=== PATIENT | male | born 1960 | race Caucasian/White ===

== ENCOUNTER 2022-09-10 15:03 | Inpatient (IN) | payer SELFPAY ==
[~2022-09-10] VITALS: Ht 182.8 cm; Wt 78.0 kg
[2022-09-10] MEDS ORDERED: NS IV 1000 ML 1,000 ML ONE (15:26)
--- NOTE | 2022-09-10 15:32 | ED General ---
General Stated Complaint: UNRESPONSIVE Source of Information: EMS Exam Limitations: Physical Impairments History of Present Illness Date Seen by Provider: Sep 10, 2022 Time Seen by Provider: 15:10 Initial Comments Patient is a 62-year-old male who presents to the emergency room by ambulance after witnessed cardiac arrest at home with his girlfriend. He was laying in bed, girlfriend states that she saw his eyes "rolled back". She went to check on him and did not believe that he had a pulse. She started CPR and called 911. They instructed her to move him to the floor where she continued CPR EMS arrived, CPR continued, LMA was placed. Intraosseous line to the left tib-fib fluids started. Glucose reported prior to arrival greater than 200. No medications were given and ROSC was achieved shortly after EMS arrival with CPR. Patient is noted to be breathing with bagging. Nonresponsive to painful stimuli. Pinpoint pupils bilaterally. No obvious outward signs of trauma. Girlfriend arrived later and states that they had both been ill for about a week with congestion, cough. He had taken an antibiotic pill yesterday and 1 today for symptoms. He is a chronic alcoholic. Drinks vodka daily. She states he is only been drinking to prevent the "shakes". He does not take any daily medications. No allergies to medications. She states he has been advised to ta ke metoprolol in the past for blood pressure. He is a smoker. Timing/Duration: 1 Hour Severity: Severe Allergies and Home Medications Allergies Coded Allergies: No Known Drug Allergies (Unverified , 09/10/22) Patient Home Medication List Home Medication List Reviewed: Yes Review of Systems Review of Systems Constitutional: see HPI unable to obtain due to patien'ts clinical condition Physical Exam Vital Signs Vital Signs - First Documented 09/10/22 09/10/22 15:04 15:41 Temp 36.2 Pulse 146 Resp 25 B/P (MAP) 156/102 (120) Pulse Ox 98 O2 Delivery Ambu Bag FiO2 98 Capillary Refill : Height, Weight, BMI Height: '" Weight: lbs. oz. kg; BMI Method: General Appearance: Thin, Other (Unkempt, dirty disheveled) Eyes: Bilateral Eye Other (pinpoint pupils bilaterally) HEENT: Other (dry mucous membranes; LMA in place; poor dentition) Neck: Normal Inspection Respiratory: Rhonci (throughout; ventilations assisted with BVM copious secretions noted equal rise and fall the chest) Cardiovascular: Irregularly Irregular, Tachycardia Gastrointestinal: Soft; No Distended Extremity: Normal Inspection, No Pedal Edema, Other (not obvious outward signs of trauma) Neurologic/Psychiatric: Other (Unresponsive to deep painful stimuli) Skin: Normal Color, Warm/Dry Focused Exam Lactate Level Lactic Acid Level Laboratory Tests Test 09/10/22 15:15 Lactic Acid Level 9.80 MMOL/L (0.50-2.00) *H Procedures/Interventions Chest Tube : Chest Tube Position: Right Chest Tube Location: Mid-Axillary Chest Size of Bulgarian Tube (cm): 20 Chest Tube Procedure: betadine prep, sterile drapes applied, sterile dressing applied Anesthesia: 1% Lidocaine Volume Anesthetic (ccs): 6 Brown of Air Cataño: Yes Number of Attempts: 1 Time of Successful Intubation: 17:10 Tube Drainage: see nurses notes Tube Sutured to Skin: Yes Post Procedure CXR?: Yes Date of ETT Placement: Sep 10, 2022 Time of ETT Placement: 15:30 Intubation Method: orotracheal Tube Size: 7.5 Medications: Etomidate, Rocuronium Positive End Tide CO2: Yes Breath Sounds after Intubation: bilateral-equal Intubation Complications: no complications Post Intubation Xray: Yes Chest x-ray large right-sided pneumothorax. ET tube in place Progress/Results/Core Measures Suspected Sepsis SIRS Temperature: Pulse: Respiratory Rate: Laboratory Tests 09/10/22 15:15: White Blood Count 16.2H Blood Pressure / Mean: Laboratory Tests 09/10/22 15:15: Creatinine 0.77, Platelet Count 215, Total Bilirubin 0.4 09/10/22 16:15: INR Comment 1.3 Results/Orders Lab Results Laboratory Tests Test 09/10/22 15:15 09/10/22 15:30 09/10/22 16:15 09/10/22 17:10 Range/Units White Blood Count 16.2 H 4.3-11.0 10^3/uL Red Blood Count 3.93 L 4.30-5.52 10^6/uL Hemoglobin 13.4 13.3-17.7 g/dL Hematocrit 43 40-54 % Mean Corpuscular Volume 110 H 80-99 fL Mean Corpuscular Hemoglobin 34 25-34 pg Mean Corpuscular Hemoglobin Concent 31 L 32-36 g/dL Red Cell Distribution Width 20.1 H 10.0-14.5 % Platelet Count 215 130-400 10^3/uL Mean Platelet Volume 10.3 9.0-12.2 fL Immature Granulocyte % (Auto) 2 % Neutrophils (%) (Auto) 34 L 42-75 % Lymphocytes (%) (Auto) 60 H 12-44 % Monocytes (%) (Auto) 4 0-12 % Eosinophils (%) (Auto) 0 0-10 % Basophils (%) (Auto) 0 0-10 % Neutrophils # (Auto) 5.5 1.8-7.8 10^3/uL Lymphocytes # (Auto) 9.7 H 1.0-4.0 10^3/uL Monocytes # (Auto) 0.7 0.0-1.0 10^3/uL Eosinophils # (Auto) 0.0 0.0-0.3 10^3/uL Basophils # (Auto) 0.1 0.0-0.1 10^3/uL Immature Granulocyte # (Auto) 0.3 H 0.0-0.1 10^3/uL Neutrophils % (Manual) 34 % Lymphocytes % (Manual) 60 % Monocytes % (Manual) 6 % Nucleated Red Blood Cells 1 Poikilocytosis SLIGHT Macrocytosis SLIGHT Sodium Level 141 135-145 MMOL/L Potassium Level 4.8 3.6-5.0 MMOL/L Chloride Level 101 98-107 MMOL/L Carbon Dioxide Level 17 L 21-32 MMOL/L Anion Gap 23 H 5-14 MMOL/L Blood Urea Nitrogen 15 7-18 MG/DL Creatinine 0.77 0.60-1.30 MG/DL Estimat Glomerular Filtration Rate 102 BUN/Creatinine Ratio 19 Glucose Level 197 H 70-105 MG/DL Lactic Acid Level 9.80 *H 0.50-2.00 MMOL/L Calcium Level 10.5 H 8.5-10.1 MG/DL Corrected Calcium 10.8 H 8.5-10.1 MG/DL Magnesium Level 2.4 1.6-2.4 MG/DL Total Bilirubin 0.4 0.1-1.0 MG/DL Aspartate Amino Transf (AST/SGOT) 117 H 5-34 U/L Alanine Aminotransferase (ALT/SGPT) 41 0-55 U/L Alkaline Phosphatase 101 40-136 U/L Myoglobin 202.5 H 10.0-92.0 NG/ML Troponin I < 0.028 <0.028 NG/ML B-Type Natriuretic Peptide 423.5 H <100.0 PG/ML Total Protein 6.8 6.4-8.2 GM/DL Albumin 3.6 3.2-4.5 GM/DL Triglycerides Level 118 <150 MG/DL Salicylates Level < 5.0 L 5.0-20.0 MG/DL Acetaminophen Level < 10 L 10-30 UG/ML Blood Gas Puncture Site RIGHT RADIAL Blood Gas Patient Temperature 36.2 Arterial Blood pH 6.98 *L 7.37-7.43 Arterial Blood Partial Pressure CO2 83 *H 35-45 MMHG Arterial Blood Partial Pressure O2 252 H 79-93 MMHG Arterial Blood HCO3 19 L 23-27 MMOL/L Arterial Blood Total CO2 21.6 21.0-31.0 MMOL/L Arterial Blood Oxygen Saturation 99 94-100 % Arterial Blood Base Excess -11.3 L -2.5-2.5 MMOL/L Alvarez Test NA Blood Gas Ventilator Setting YES Blood Gas Inspired Oxygen 100 Prothrombin Time 16.2 H 12.2-14.7 SEC INR Comment 1.3 0.8-1.4 Activated Partial Thromboplast Time 33 24-35 SEC Urine Opiates Screen POSITIVE H NEGATIVE Urine Oxycodone Screen NEGATIVE NEGATIVE Urine Methadone Screen NEGATIVE NEGATIVE Urine Propoxyphene Screen NEGATIVE NEGATIVE Urine Barbiturates Screen POSITIVE H NEGATIVE Ur Tricyclic Antidepressants Screen NEGATIVE NEGATIVE Urine Phencyclidine Screen NEGATIVE NEGATIVE Urine Amphetamines Screen NEGATIVE NEGATIVE Urine Methamphetamines Screen NEGATIVE NEGATIVE Urine Benzodiazepines Screen NEGATIVE NEGATIVE Urine Cocaine Screen NEGATIVE NEGATIVE Urine Cannabinoids Screen NEGATIVE NEGATIVE Micro Results Microbiology 09/10/22 Blood Culture - Preliminary, Resulted No growth 09/10/22 Blood Culture - Preliminary, Resulted Staph, Coag Neg ([employer] PSYCHIATRIST) My Orders Orders - ANDREINA FLOOD MD Cbc With Automated Diff (09/10/22 15:25) Magnesium (09/10/22 15:25) Chest 1 View, Ap/Pa Only (09/10/22 15:25) Ekg Tracing (09/10/22 15:25) Comprehensive Metabolic Panel (09/10/22 15:25) Myoglobin Serum (09/10/22 15:25) Protime With Inr (09/10/22 15:25) Partial Thromboplastin Time (09/10/22 15:25) O2 (09/10/22 15:25) Monitor-Rhythm Ecg Trace Only (09/10/22 15:25) Ed Iv/Invasive Line Start (09/10/22 15:25) Troponin I Argenis (09/10/22 15:25) Bnp [place] (09/10/22 15:25) Blood Culture (09/10/22 15:25) Salicylate (09/10/22 15:25) Acetaminophen (09/10/22 15:25) Drug Screen Stat (Urine) (09/10/22 15:25) Lactic Acid Analyzer (09/10/22 15:25) Arterial Blood Gas (09/10/22 15:25) Catheter(Urinary) Insert & Ass ,15 (09/10/22 15:25) Ns Iv 1000 Ml (Sodium Chloride 0.9%) (09/10/22 15:26) Blood Culture (09/10/22 15:31) Ns Iv 1000 Ml (Sodium Chloride 0.9%) (09/10/22 15:33) Diltiazem Injection (Cardizem Injection) (09/10/22 16:00) Diltiazem Drip Pre-Mix (Cardizem Drip Pr (09/10/22 16:00) Piperacillin Sodium/Tazobactam (Zosyn Vi (09/10/22 16:15) Vancomycin Injection (Vancomycin Injecti (09/10/22 16:15) Ct Chest W (09/10/22 16:09) Manual Differential (09/10/22 15:15) Lidocaine 1% Inj 20 Ml (Xylocaine 1% Inj (09/10/22 16:42) Chest 1 View, Ap/Pa Only (09/10/22 17:07) Ct Angio Head/Neck (09/10/22 17:35) Isolation Central Supply Req (09/10/22 17:36) Ed Admission (Communication) (09/10/22 17:50) Ns Iv 1000 Ml (Sodium Chloride 0.9%) (09/10/22 18:00) Medications Given in ED Vital Signs/I&O 09/10/22 09/10/22 09/10/22 09/10/22 15:04 15:15 15:41 15:52 Temp 36.2 Pulse 146 160 Resp 25 18 B/P (MAP) 156/102 (120) Pulse Ox 98 95 O2 Delivery Ambu Bag Ambu Bag Ambu Bag FiO2 98 100 09/10/22 09/10/22 15:56 15:56 Pulse 160 158 B/P (MAP) 99/82 99/82 Capillary Refill : Progress Note : Time: 17:43 Progress Note Patient seen and evaluated, postcode. Evaluation today includes physical exam, CBC, chemistry, coags, mag, BNP, troponin, toxicology aspirin, Tylenol levels, alcohol level, urine drug screen. Urinalysis. Chest x-ray. EKG. Blood cultures. Lactic acid. ABG. CT head and neck angio, postprocedural chest x- ray, CT chest with IV contrast. Pertinent physical exam findings, well- developed male unresponsive to even deep painful stimuli. Dry mucous membranes. Pinpoint pupils. Making respiratory effort. Rapid irregular heart rate, rhonchus breath sounds bilaterally with copious secretions from the oropharynx. Abdomen is soft. No traumatic injuries noted to the extremities. Neuro, GCS = 3 Differential diagnosis, acute stroke, malignant arrhythmia, acute coronary syndrome, sepsis/septic shock; drug overdose Labs independently reviewed by me as well as independent review of the chest x- ray. CBC shows leukocytosis at 16,000 with normal hemoglobin and platelets. Chemistry shows normal renal function normal electrolytes normal liver function. His lactic acid is 9. Aspirin and Tylenol levels are undetectable. BNP is elevated. Mag is 2.5. ABG shows significant acidosis with a pH of 6.9. PCO2 greater than 80. EKG shows atrial fibrillation with rapid ventricular response. Chest x-ray demonstrated right-sided pneumothorax with patchy appearing infiltrates in the left lung. ET tube and NG tube in place. Urinalysis, urine drug screen pending at the time of this dictation. Patient received 2 L of normal saline initially. Blood sugar rechecked and greater than 200. He was also given during resuscitation 4 mg of Narcan. No response to the Narcan, the patient may have made better respiratory effort however after the Narcan. Once dedicated ET tube was in place and fluids were bolused and the blood pressure came up to greater than 90 the patient was started on Cardizem after a 10 mg bolus. He had improvement in his rate down to 1 10-1 15 and his blood pressure came up into the 120s, 130s systolic. Chest tube was placed in the right chest mid axillary line, 20 Bulgarian. review of CXR shows the tube could be advanced 3-4 cm. Patient currently in CT. Dr Rodgers in department to see the patient at this time. COnsults to him and Dina e-ICU done. ECG Initial ECG Impression Date: Sep 10, 2022 Initial ECG Impression Time: 15:18 Initial ECG Rate: 145 Initial ECG Rhythm: A Fib/Flutter Initial ECG Impression: Atrial Fibrillation w/RVR Comment Intermittent Q waves noted, QRS widened at 146; right bundle branch block Critical Care Note Critical Care Start Time: 15:10 Stop Time: 17:30 Total Time (minutes) 40 minutes critical care time in the evaluation and management of this postcode patient. Time includes initial evaluation, management of the airway/oxygenation, fluid resuscitation, review and interpretation of labs and imaging. Discussion with family member, his girlfriend for additional history as the patient could not provide. Medication administration, Cardizem for control of A-fib and management of Cardizem drip. Antibiotic administration. Discussion with multiple consultants and the admitting provider. Time does not include that spent in procedures of intubation and chest tube placement Departure Communication (Admissions) Time/Spoke to Admitting Phy: 16:[address] Coon, hospitalist. Accepts patient to the ICU Time/Spoke to Consulting Phy: 16:[address] Truong, general surgery recommends dedicated chest tube right chest for pneumothorax Impression Primary Impression: Cardiac arrest Additional Impressions: Atrial fibrillation with rapid ventricular response Pneumothorax Qualified Codes: S27.0XXA - Traumatic pneumothorax, initial encounter Disposition: ADMITTED INPATIENT Condition: Critical Admissions Decision to Admit Reason: Admit from ER (General) Decision to Admit/Date: Sep 10, 2022 Time/Decision to Admit Time: 17:38 Departure-Patient Inst. Referrals: NO,LOCAL PHYSICIAN (PCP/Family) Primary Care Physician ANDREINA FLOOD MD Sep 10, 2022 15:32
[2022-09-10] MEDS ORDERED: NS IV 1000 ML 1,000 ML IV STA (15:33)
[2022-09-10 15:36] LABS: ABG BASE EXCESS -11.3 MMOL/L (-2.5-2.5); ABG OXYGEN SATURATION 99 % (94-100); ABG PO2 252 MMHG (79-93); ABG TCO2 21.6 MMOL/L (21.0-31.0)
[2022-09-10 15:39] LABS: ABG PCO2 83 MMHG (35-45); ABG PH 6.98 (7.37-7.43); INSPIRED O2 100; VENTILATOR YES
[2022-09-10 15:40] LABS: ALBUMIN 3.6 GM/DL (3.2-4.5); POTASSIUM 4.8 MMOL/L (3.6-5.0)
[2022-09-10 15:40] LABS: PATIENT TEMP 36.2
[2022-09-10 15:41] LABS: CALCIUM 10.5 MG/DL (8.5-10.1)
[2022-09-10 15:42] LABS: TOTAL PROTEIN 6.8 GM/DL (6.4-8.2)
[2022-09-10 15:44] LABS: BILIRUBIN,TOTAL 0.4 MG/DL (0.1-1.0)
[2022-09-10 15:46] LABS: CREATININE SERUM 0.77 MG/DL (0.60-1.30)
[2022-09-10 15:49] LABS: MAGNESIUM 2.4 MG/DL (1.6-2.4)
[2022-09-10 15:50] LABS: ACETAMINOPHEN < 10 UG/ML (10-30); SALICYLATE < 5.0 MG/DL (5.0-20.0)
[2022-09-10 15:52] VITALS: BP 99/82
[2022-09-10] MEDS: dilTIAZem DRIP PRE-MIX 125 ML IV SCH (15:56)
--- NOTE | 2022-09-10 16:05 | Diagnostic Imaging Report ---
EXAMINATION: Chest 1 view. HISTORY: Post code. COMPARISON: None available. FINDINGS: There is a large right pneumothorax. There are patchy airspace opacities in both lungs. Endotracheal tube tip terminates 8 cm above the quita. Gastric tube tip terminates below the field of view. No left-sided pneumothorax. There is a nodular opacity in the right upper zone and left upper zone. IMPRESSION: 1. Large right pneumothorax. 2. Patchy airspace opacities and nodular opacities may represent acute infection. When feasible a chest CT is recommended. Critical findings called to Dr. Cooper by Dr. Pereira on 09/10/2022 at 4:00 PM. Dictated by: Dictated on workstation # [id number]
[2022-09-10] MEDS ORDERED: PIPERACILLIN SODIUM/TAZOBACTAM 4.5 GM in NS (IVPB) 100 ML IV ONE (16:15)
[2022-09-10] MEDS ORDERED: VANCOMYCIN INJECTION 1,000 MG in NS (IVPB) 250 ML IV ONE (16:15)
[2022-09-10 16:19] LABS: BASOPHILS # (AUTO) 0.1 10^3/uL (0.0-0.1); BASOPHILS % (AUTO) 0 % (0-10); EOSINOPHILS % (AUTO) 0 % (0-10); HEMATOCRIT 43 % (40-54); HEMOGLOBIN 13.4 g/dL (13.3-17.7); LYMPHOCYTES # (AUTO) 9.7 10^3/uL (1.0-4.0); LYMPHOCYTES % (AUTO) 60 % (12-44); MEAN CORPUSCULAR HEMOGLOBIN 34 pg (25-34); MEAN CORPUSCULAR HGB CONC 31 g/dL (32-36); MEAN CORPUSCULAR VOLUME 110 fL (80-99); MEAN PLATELET VOLUME 10.3 fL (9.0-12.2); MONOCYTES # (AUTO) 0.7 10^3/uL (0.0-1.0); MONOCYTES % (AUTO) 4 % (0-12); NEUTROPHILS # (AUTO) 5.5 10^3/uL (1.8-7.8); NEUTROPHILS % (AUTO) 34 % (42-75); PLATELET COUNT 215 10^3/uL (130-400); WHITE BLOOD COUNT 16.2 10^3/uL (4.3-11.0)
[2022-09-10] MEDS ORDERED: LIDOCAINE 1% INJ 20 ML VIAL ONE (16:42)
[2022-09-10 16:47] LABS: LYMPHOCYTES % (MANUAL) 60 %; MONOCYTES % (MANUAL) 6 %; NEUTROPHILS % (MANUAL) 34 %; NUCLEATED RED BLOOD CELLS 1; POIKILOCYTOSIS SLIGHT
[2022-09-10 16:47] LABS: INR 1.3 (0.8-1.4); PROTHROMBIN TIME PATIENT 16.2 SEC (12.2-14.7)
[2022-09-10 17:33] LABS: AMPHETAMINE SCREEN, URINE NEGATIVE (NEGATIVE); BARBITURATE SCREEN URINE POSITIVE (NEGATIVE); BENZODIAZEPINES SCREEN URINE NEGATIVE (NEGATIVE); CANNABINOID SCREEN, URINE NEGATIVE (NEGATIVE); COCAINE SCREEN URINE NEGATIVE (NEGATIVE); METHADONE STAT NEGATIVE (NEGATIVE); OPIATE SCREEN URINE POSITIVE (NEGATIVE); OXYCODONE STAT NEGATIVE (NEGATIVE); PROPOXYPHENE STAT NEGATIVE (NEGATIVE); TRICYCLIC ANTIDEPRESSANTS SCRE NEGATIVE (NEGATIVE)
--- NOTE | 2022-09-10 17:34 | Diagnostic Imaging Report ---
EXAMINATION: Chest 1 view. HISTORY: Right-sided chest tube placement. Follow-up. COMPARISON: Chest radiograph performed earlier the same date. FINDINGS: A right-sided chest tube is in place with near complete resolution of the large right-sided pneumothorax seen on the prior exam. No large pleural effusion. Stable enteric tube. There has been placement of an endotracheal tube with the tip below the thoracic inlet. Patchy opacities are seen in the midlungs, bilaterally. Stable cardiac silhouette. IMPRESSION: Placement of a right-sided chest tube with near complete resolution of the large right-sided pneumothorax. Recommend continued follow-up, as indicated. Dictated by: Dictated on workstation # [id number]
[2022-09-10] MEDS ORDERED: NS IV 1000 ML 1,000 ML IV SCH (18:00)
--- NOTE | 2022-09-10 18:07 | Diagnostic Imaging Report ---
EXAMINATION: CT chest with intravenous contrast. TECHNIQUE: Multiple contiguous axial images were obtained through the chest after the uneventful administration of intravenous contrast. All CT scans use one or more of the following dose optimizing techniques: automated exposure control, MA and/or KvP adjustment based on patient size and exam type or iterative reconstruction. HISTORY: Unresponsive. Intubated. Post CODE BLUE. COMPARISON: Chest radiograph performed the same date. FINDINGS: The heart size is prominent. No pericardial effusion is present. No evidence of pulmonary embolus of the segmental pulmonary arteries. There is calcified aortic and coronary atherosclerotic plaque. No evidence of aneurysm or dissection in the thoracic aorta. Endotracheal tube and enteric tube are in place. There is no mediastinal, hilar or axillary lymphadenopathy. A right-sided chest tube is in place with trace right-sided pneumothorax. No pleural effusion. Consolidative opacities are seen in the right lung base. Extensive centrilobular and paraseptal emphysema is seen throughout the lungs. There are scattered nodular opacities throughout the lungs. The osseous structures demonstrate no acute abnormality. There is hepatic steatosis. Both adrenal glands are unremarkable. IMPRESSION: 1. Right-sided chest tube in place with trace right-sided pneumothorax. 2. Consolidative opacities in the right lung base which may represent atelectasis. Additional nodular opacities are scattered throughout the lungs and could represent inflammatory/infectious process or metastatic disease. Recommend continued follow-up, as indicated. 3. No evidence of pulmonary embolus to the segmental pulmonary arteries. Mild cardiomegaly. No overt edema. 4. Hepatic steatosis. Dictated by: Dictated on workstation # [id number]
--- NOTE | 2022-09-10 18:09 | Tele-ICU Consult ---
Progress Note 62 y/o male brought to ED as full arrest. Girlfriend found him unresponsive EMS called, suposedly in [place]. Intubated in ED Found to be in a fib /RVR given amiodarone and started on diltiazem drip after 10mg bolus. CXR showed pneumothorax after CPR and chest tube placed. Also read as patchy infiltrates and so zosyn and vancomycin started Urine tox pending IMP: cardiopulmonary arrest, unclear etiology PLAN: mechaniical ventilation Sedation Cardizem drip for a fib/rvr Chech tropoins although may be elevated from CPR Time spent in evaluation, review of labs ,xrays and orders : 35 minutes Focused Exam Lactate Level 09/10/22 15:15: Lactic Acid Level 9.80*H Height, Weight, BMI Height: '" Weight: lbs. oz. kg; 23.00 BMI Method: Lactic Acid Level Laboratory Tests Test 09/10/22 15:15 Lactic Acid Level 9.80 MMOL/L (0.50-2.00) *H Labs Laboratory Tests 09/10/22 15:15 Results Results/Procedures Labs Laboratory Tests 09/10/22 15:15 Patient resulted labs reviewed. Results Results/Procedures Labs Laboratory Tests 09/10/22 15:15 Patient resulted labs reviewed. Results Labs Labs Laboratory Tests 09/10/22 15:15: White Blood Count 16.2H, Red Blood Count 3.93L, Hemoglobin 13.4, Hematocrit 43, Mean Corpuscular Volume 110H, Mean Corpuscular Hemoglobin 34, Mean Corpuscular Hemoglobin Concent 31L, Red Cell Distribution Width 20.1H, Platelet Count 215, Mean Platelet Volume 10.3, Immature Granulocyte % (Auto) 2, Neutrophils (%) (Auto) 34L, Lymphocytes (%) (Auto) 60H, Monocytes (%) (Auto) 4, Eosinophils (%) (Auto) 0, Basophils (%) (Auto) 0, Neutrophils # (Auto) 5.5, Lymphocytes # (Auto) 9.7H, Monocytes # (Auto) 0.7, Eosinophils # (Auto) 0.0, Basophils # (Auto) 0.1, Immature Granulocyte # (Auto) 0.3H, Neutrophils % (Manual) 34, Lymphocytes % (Manual) 60, Monocytes % (Manual) 6, Nucleated Red Blood Cells 1, Poikilocytosis SLIGHT, Macrocytosis SLIGHT, Sodium Level 141, Potassium Level 4.8, Chloride Level 101, Carbon Dioxide Level 17L, Anion Gap 23H, Blood Urea Nitrogen 15, Creatinine 0.77, Estimat Glomerular Filtration Rate 102, BUN/Creatinine Ratio 19, Glucose Level 197H, Lactic Acid Level 9.80*H, Calcium Level 10.5H, Corrected Calcium 10.8H, Magnesium Level 2.4, Total Bilirubin 0.4, Aspartate Amino Transf (AST/SGOT) 117H, Alanine Aminotransferase (ALT/SGPT) 41, Alkaline Phosphatase 101, Myoglobin 202.5H, Troponin I < 0.028, B-Type Natriuretic Peptide 423.5H, Total Protein 6.8, Albumin 3.6, Salicylates Level < 5.0L, Acetaminophen Level < 10L 09/10/22 15:30: Blood Gas Puncture Site RIGHT RADIAL, Blood Gas Patient Temperature 36.2, Arterial Blood pH 6.98*L, Arterial Blood Partial Pressure CO2 83*H, Arterial B lood Partial Pressure O2 252H, Arterial Blood HCO3 19L, Arterial Blood Total CO2 21.6, Arterial Blood Oxygen Saturation 99, Arterial Blood Base Excess -11.3L, Alvarez Test NA, Blood Gas Ventilator Setting YES, Blood Gas Inspired Oxygen 100 09/10/22 16:15: Prothrombin Time 16.2H, INR Comment 1.3, Activated Partial Thromboplast Time 33 09/10/22 17:10: Urine Opiates Screen POSITIVEH, Urine Oxycodone Screen NEGATIVE, Urine Methadone Screen NEGATIVE, Urine Propoxyphene Screen NEGATIVE, Urine Barbiturates Screen POSITIVEH, Ur Tricyclic Antidepressants Screen NEGATIVE, Urine Phencyclidine Screen NEGATIVE, Urine Amphetamines Screen NEGATIVE, Urine Methamphetamines Screen NEGATIVE, Urine Benzodiazepines Screen NEGATIVE, Urine Cocaine Screen NEGATIVE, Urine Cannabinoids Screen NEGATIVE Results Labs Labs Laboratory Tests 09/10/22 15:15: White Blood Count 16.2H, Red Blood Count 3.93L, Hemoglobin 13.4, Hematocrit 43, Mean Corpuscular Volume 110H, Mean Corpuscular Hemoglobin 34, Mean Corpuscular Hemoglobin Concent 31L, Red Cell Distribution Width 20.1H, Platelet Count 215, Mean Platelet Volume 10.3, Immature Granulocyte % (Auto) 2, Neutrophils (%) (Auto) 34L, Lymphocytes (%) (Auto) 60H, Monocytes (%) (Auto) 4, Eosinophils (%) (Auto) 0, Basophils (%) (Auto) 0, Neutrophils # (Auto) 5.5, Lymphocytes # (Auto) 9.7H, Monocytes # (Auto) 0.7, Eosinophils # (Auto) 0.0, Basophils # (Auto) 0.1, Immature Granulocyte # (Auto) 0.3H, Neutrophils % (Manual) 34, Lymphocytes % (Manual) 60, Monocytes % (Manual) 6, Nucleated Red Blood Cells 1, Poikilocytosis SLIGHT, Macrocytosis SLIGHT, Sodium Level 141, Potassium Level 4.8, Chloride Level 101, Carbon Dioxide Level 17L, Anion Gap 23H, Blood Urea Nitrogen 15, Creatinine 0.77, Estimat Glomerular Filtration Rate 102, BUN/Creatinine Ratio 19, Glucose Level 197H, Lactic Acid Level 9.80*H, Calcium Level 10.5H, Corrected Calcium 10.8H, Magnesium Level 2.4, Total Bilirubin 0.4, Aspartate Amino Transf (AST/SGOT) 117H, Alanine Aminotransferase (ALT/SGPT) 41, Alkaline Phosphatase 101, Myoglobin 202.5H, Troponin I < 0.028, B-Type Natriuretic Peptide 423.5H, Total Protein 6.8, Albumin 3.6, Salicylates Level < 5.0L, Acetaminophen Level < 10L 09/10/22 15:30: Blood Gas Puncture Site RIGHT RADIAL, Blood Gas Patient Temperature 36.2, Arterial Blood pH 6.98*L, Arterial Blood Partial Pressure CO2 83*H, Arterial Blood Partial Pressure O2 252H, Arterial Blood HCO3 19L, Arterial Blood Total CO2 21.6, Arterial Blood Oxygen Saturation 99, Arterial Blood Base Excess -11.3L , Alvarez Test NA, Blood Gas Ventilator Setting YES, Blood Gas Inspired Oxygen 100 09/10/22 16:15: Prothrombin Time 16.2H, INR Comment 1.3, Activated Partial Thromboplast Time 33 09/10/22 17:10: Urine Opiates Screen POSITIVEH, Urine Oxycodone Screen NEGATIVE, Urine Methadone Screen NEGATIVE, Urine Propoxyphene Screen NEGATIVE, Urine Barbiturates Screen POSITIVEH, Ur Tricyclic Antidepressants Screen NEGATIVE, Urine Phencyclidine Screen NEGATIVE, Urine Amphetamines Screen NEGATIVE, Urine Methamphetamines Screen NEGATIVE, Urine Benzodiazepines Screen NEGATIVE, Urine Cocaine Screen NEGATIVE, Urine Cannabinoids Screen NEGATIVE ANNA LEMONS MD Sep 10, 2022 18:09
--- NOTE | 2022-09-10 18:10 | Diagnostic Imaging Report ---
PROCEDURE: CT angiography of the head and CT angiography of the neck with and without contrast. TECHNIQUE: Contiguous noncontrast images were obtained from the skull base through the vertex. After intravenous contrast administration, helical CT angiography of the neck was performed. Source data was reformatted into 3D MIP projections. Delayed post contrast acquisition was also obtained. Auto Exposure Controls were utilized during the CT exam to meet ALARA standards for radiation dose reduction. INDICATION: Unresponsive. Post CODE BLUE. History of alcohol abuse. COMPARISON: None. FINDINGS: CTA NECK: The visualized portions of the aortic arch demonstrate no evidence of aneurysm or dissection. There is conventional branching pattern of the great vessels of the aorta. The brachiocephalic artery is normal in course and caliber. The right and left common carotid origins are unremarkable. The origin of the left subclavian artery is patent. The common carotid arteries and internal carotid arteries demonstrate a normal course. There is calcified atherosclerotic plaque in the bilateral carotid bulbs and proximal internal carotid arteries without flow-limiting stenosis. No evidence of dissection in the carotid systems. The external carotid arteries are patent and unremarkable. The vertebral arteries are codominant. The origin of the right vertebral artery is seen and is unremarkable. The origin of the left vertebral artery is seen and is unremarkable. There is no focal stenosis seen within the neck. There is no dissection. The vertebral arteries are well visualized up to the level of the basilar artery. The osseous structures of the cervical spine are unremarkable. CTA BRAIN: Atherosclerotic plaque is seen in the [place] of the bilateral terminal internal carotid arteries without significant stenosis. No stenosis is seen in the bilateral anterior, middle or posterior cerebral arteries. No evidence of aneurysm of the [place]. In the posterior circulation, both of the vertebral arteries demonstrate normal opacification. Both the right and left PICA arteries are identified. The basilar artery is normal in course and caliber. The terminal branch vessels, including the superior cerebellar arteries, are unremarkable. CT HEAD: No large acute territorial ischemia. No acute hemorrhage or mass. No midline shift or mass effect. No hydrocephalus. The paranasal sinuses and mastoid air cells are clear. Scalp and calvarium are intact. IMPRESSION: 1. No stenosis or aneurysm in the [place]. No large vessel occlusion. 2. No stenosis or dissection the bilateral carotid and vertebral arteries. 3. No large acute territorial ischemia. No acute hemorrhage or mass. Dictated by: Dictated on workstation # [id number]
[2022-09-10] MEDS ORDERED: NS 100 ML (IVPB) BAG IV ONE (18:15)
[2022-09-10] MEDS ORDERED: IOHEXOL 350 MG/ML 100 ML (OMNIPAQUE 350) VIAL IV ONE ×2 (18:15)
[2022-09-10] MEDS ORDERED: HOLD METFORMIN - RECEIVED CONTRAST 20 ML VIAL IV SCH ×2 (18:15)
[2022-09-10 18:19] VITALS: BP 129/81
[2022-09-10] MEDS ORDERED: fentaNYL DRIP PRE-MIX 250 ML IV ONE (18:19)
[2022-09-10] MEDS ORDERED: PROPOFOL DRIP (ICU) 100 ML IV ONE (18:20)
--- NOTE | 2022-09-10 18:26 | Consultation-Cardiology ---
HPI-Cardiology Cardiology Consultation Date of Consultation 09/10/22 Date of Admission Time Seen by Provider: 18:19 Indication: Cardiac arrest HPI 62-year-old gentleman with no known past medical history, brought to the emergency room by EMS, currently intubated. History was obtained by reviewing his record. Patient was reportedly had a cardiac arrest at home, he was laying down in bed and his girlfriend reported that his eyes rolled back, did not feel his pulse. She started CPR and called 911. She was instructed to move him to the floor and she continued CPR. Patient had IO line, Leukos was reported to be 200, no medication were given and ROSC was achieved. On arrival to the emergency room patient was intubated, he is still unresponsive. Not following command. Not sedated. Review of his record showed wide-complex tachycardia which appeared to be ventricular tachycardia versus atrial fibrillation with rapid ventricular response. Few P waves were noted. Patient received IV fluid and Cardizem bolus and a drip. On my evaluation he was noted to be in narrow complex tachycardia with atrial flutter and blood pressure is stable. Home Medications & Allergies Allergies: Coded Allergies: No Known Drug Allergies (Unverified , 09/10/22) Home Medication List Reviewed: Yes Does not take any medication MBS-Morvvt-Yofahs Hx Patient Social History Marital Status: single Have you traveled recently?: Unable to obtain Alcohol Use?: Yes Past Medical History No known past medical history Family Medical History Family Medical Hx No known family history Review of Systems-General Review of Systems Constitutional: see HPI, other (Unable to provide review of system) Reviewed Test Results Reviewed Test Results Lab Laboratory Tests Test 09/10/22 15:15 09/10/22 15:30 09/10/22 16:15 09/10/22 17:10 Range/Units White Blood Count 16.2 H 4.3-11.0 10^3/uL Red Blood Count 3.93 L 4.30-5.52 10^6/uL Hemoglobin 13.4 13.3-17.7 g/dL Hematocrit 43 40-54 % Mean Corpuscular Volume 110 H 80-99 fL Mean Corpuscular Hemoglobin 34 25-34 pg Mean Corpuscular Hemoglobin Concent 31 L 32-36 g/dL Red Cell Distribution Width 20.1 H 10.0-14.5 % Platelet Count 215 130-400 10^3/uL Mean Platelet Volume 10.3 9.0-12.2 fL Immature Granulocyte % (Auto) 2 % Neutrophils (%) (Auto) 34 L 42-75 % Lymphocytes (%) (Auto) 60 H 12-44 % Monocytes (%) (Auto) 4 0-12 % Eosinophils (%) (Auto) 0 0-10 % Basophils (%) (Auto) 0 0-10 % Neutrophils # (Auto) 5.5 1.8-7.8 10^3/uL Lymphocytes # (Auto) 9.7 H 1.0-4.0 10^3/uL Monocytes # (Auto) 0.7 0.0-1.0 10^3/uL Eosinophils # (Auto) 0.0 0.0-0.3 10^3/uL Basophils # (Auto) 0.1 0.0-0.1 10^3/uL Immature Granulocyte # (Auto) 0.3 H 0.0-0.1 10^3/uL Neutrophils % (Manual) 34 % Lymphocytes % (Manual) 60 % Monocytes % (Manual) 6 % Nucleated Red Blood Cells 1 Poikilocytosis SLIGHT Macrocytosis SLIGHT Sodium Level 141 135-145 MMOL/L Potassium Level 4.8 3.6-5.0 MMOL/L Chloride Level 101 98-107 MMOL/L Carbon Dioxide Level 17 L 21-32 MMOL/L Anion Gap 23 H 5-14 MMOL/L Blood Urea Nitrogen 15 7-18 MG/DL Creatinine 0.77 0.60-1.30 MG/DL Estimat Glomerular Filtration Rate 102 BUN/Creatinine Ratio 19 Glucose Level 197 H 70-105 MG/DL Lactic Acid Level 9.80 *H 0.50-2.00 MMOL/L Calcium Level 10.5 H 8.5-10.1 MG/DL Corrected Calcium 10.8 H 8.5-10.1 MG/DL Magnesium Level 2.4 1.6-2.4 MG/DL Total Bilirubin 0.4 0.1-1.0 MG/DL Aspartate Amino Transf (AST/SGOT) 117 H 5-34 U/L Alanine Aminotransferase (ALT/SGPT) 41 0-55 U/L Alkaline Phosphatase 101 40-136 U/L Myoglobin 202.5 H 10.0-92.0 NG/ML Troponin I < 0.028 <0.028 NG/ML B-Type Natriuretic Peptide 423.5 H <100.0 PG/ML Total Protein 6.8 6.4-8.2 GM/DL Albumin 3.6 3.2-4.5 GM/DL Salicylates Level < 5.0 L 5.0-20.0 MG/DL Acetaminophen Level < 10 L 10-30 UG/ML Blood Gas Puncture Site RIGHT RADIAL Blood Gas Patient Temperature 36.2 Arterial Blood pH 6.98 *L 7.37-7.43 Arterial Blood Partial Pressure CO2 83 *H 35-45 MMHG Arterial Blood Partial Pressure O2 252 H 79-93 MMHG Arterial Blood HCO3 19 L 23-27 MMOL/L Arterial Blood Total CO2 21.6 21.0-31.0 MMOL/L Arterial Blood Oxygen Saturation 99 94-100 % Arterial Blood Base Excess -11.3 L -2.5-2.5 MMOL/L Alvarez Test NA Blood Gas Ventilator Setting YES Blood Gas Inspired Oxygen 100 Prothrombin Time 16.2 H 12.2-14.7 SEC INR Comment 1.3 0.8-1.4 Activated Partial Thromboplast Time 33 24-35 SEC Urine Opiates Screen POSITIVE H NEGATIVE Urine Oxycodone Screen NEGATIVE NEGATIVE Urine Methadone Screen NEGATIVE NEGATIVE Urine Propoxyphene Screen NEGATIVE NEGATIVE Urine Barbiturates Screen POSITIVE H NEGATIVE Ur Tricyclic Antidepressants Screen NEGATIVE NEGATIVE Urine Phencyclidine Screen NEGATIVE NEGATIVE Urine Amphetamines Screen NEGATIVE NEGATIVE Urine Methamphetamines Screen NEGATIVE NEGATIVE Urine Benzodiazepines Screen NEGATIVE NEGATIVE Urine Cocaine Screen NEGATIVE NEGATIVE Urine Cannabinoids Screen NEGATIVE NEGATIVE Physical Exam Physical Exam Vital Signs Vital Signs - First Documented 09/10/22 09/10/22 15:04 15:41 Temp 36.2 Pulse 146 Resp 25 B/P (MAP) 156/102 (120) Pulse Ox 98 O2 Delivery Ambu Bag FiO2 98 Capillary Refill : Greater Than 3 Seconds Height, Weight, BMI Height: '" Weight: lbs. oz. kg; 23.00 BMI Method: General Appearance: Thin, Other (Ventilator dependent) Eyes: Bilateral Eye Other (pinpoint pupils bilaterally) HEENT: Other (dry mucous membranes; LMA in place; poor dentition) Neck: Normal Inspection Respiratory: Crackles, Decreased Breath Sounds, Rhonci (throughout; ventilations assisted with BVM copious secretions noted equal rise and fall the chest) Cardiovascular: Irregularly Irregular, Tachycardia Gastrointestinal: Soft; No Distended Extremity: Normal Inspection, No Pedal Edema, Other (not obvious outward signs of trauma) Neurologic/Psychiatric: Other (Unresponsive to deep painful stimuli) Skin: Normal Color, Warm/Dry A/P-Cardiology Admission Diagnosis Anoxic brain injury Acute respiratory failure Wide-complex tachycardia Hypotensive shock Assessment/Plan Anoxic brain injury, patient is unresponsive Currently ventilator dependent. Continue to monitor Witnessed collapse, questionable sudden On arrival to the emergency room had wide-complex tachycardia Currently in atrial flutter with rapid ventricular response and maintained on Cardizem drip I will evaluate 2D echo and start Lopressor IV and Lovenox Acute respiratory failure, ventilator dependent Managed by medical team Right pneumothorax, secondary to CPR, chest tube is in place. Lactic acidosis, receiving IV fluids, managed by medical team Questionable pneumonia noted on x-ray, managed by medical team CT of the chest with contrast reported as possible atelectasis versus pneumonia, no embolus or aneurysm CT angiogram of the head and neck did not show any catastrophic stroke or bleed Overall prognosis is guarded based on regaining brain activity I am starting beta-blockers, assuming he has underlying malignant arrhythmia We will continue monitoring on telemetry and evaluate 2D echo, add IV Lopressor. I will consider using amiodarone if needed or cardioversion Monitor troponin which I assume will start to increase due to the cardiac arrest CHINYERE VARGAS MD Sep 10, 2022 18:26
[2022-09-10] MEDS ORDERED: ENOXAPARIN 40 MG/0.4 ML (LOVENOX) SYR SC SCH (18:30)
[2022-09-10] MEDS ORDERED: meTOprolol 5 MG/5 ML (LOPRESSOR) VIAL ONE (18:49)
[2022-09-10] MEDS: fentaNYL DRIP PRE-MIX 250 ML IV SCH (18:56)
[2022-09-10] MEDS: PROPOFOL DRIP (ICU) 100 ML IV SCH (18:56)
[2022-09-10] MEDS: meTOprolol 5 MG/5 ML (LOPRESSOR) VIAL IV SCH (18:57)
[2022-09-10] MEDS ORDERED: BISACODYL 10 MG SUPP (DULCOLAX) PR PRN (19:00)
[2022-09-10] MEDS ORDERED: diphenhydrAMINE 50 MG/ML INJ (BENADRYL) IVP PRN (19:00)
[2022-09-10] MEDS ORDERED: VANCOMYCIN INJECTION 0.1 MG in NS (IVPB) 250 ML IV SCH (19:00)
[2022-09-10] MEDS ORDERED: polyethylene glycoL POWDER 17 GM (MIRALAX) PACK PO PRN (19:00)
[2022-09-10] MEDS ORDERED: MILK OF MAGNESIA 400 MG/5 ML 30 ML UDC PO PRN (19:00)
[2022-09-10] MEDS: NS IV 1000 ML 1,000 ML IV SCH (19:00)
[2022-09-10] MEDS ORDERED: ONDANSETRON 4 MG/2 ML (SDV) Z0FRAN IV PRN (19:00)
[2022-09-10 19:03] LABS: ABG OXYGEN SATURATION 100 % (94-100); ABG PO2 406 MMHG (79-93); ABG TCO2 26.4 MMOL/L (21.0-31.0)
[2022-09-10 19:05] LABS: ABG PCO2 88 MMHG (35-45); ABG PH 7.07 (7.37-7.43); INSPIRED O2 100; PATIENT TEMP 38; VENTILATOR YES
--- NOTE | 2022-09-10 19:37 | History & Physical-Hospitalist ---
History of Present Illness HPI/Chief Complaint Josafta Back is a 62 year old male who presented after a cardiac arrest at home. His fiancee apparently found him unresponsive having seizure-like activity. He did not have a pulse and CPR was initiated. She continued CPR until EMS arrived. ROSC was obtained. He was intubated. There is no family present upon my examination. He is intubated and mildly sedated. He is opening his eyes spontaneously. He is not able to follow commands. He had reportedly been having upper respiratory symptoms. They were concerned that he had a sinus infection or pneumonia. He had been taking an antibiotic they had at home. Source: RN/MD Exam Limitations: clinical condition Date Seen 09/10/22 Time Seen by a Provider: 18:40 Attending Physician No,Local Physician PCP Admitting Physician: Aniyah Coon MD Attending Physician: Aniyah Coon MD Referring Physician Date of Admission Sep 10, 2022 at 17:55 Home Medications & Allergies Home Medications Reviewed patient Home Medication Reconciliation performed by pharmacy medication reconciliations critical power install technician and/or nursing. Patients Allergies have been reviewed. Allergies Allergies Coded Allergies No Known Drug Allergies (Unverified09/10/22) Past Ybtcuvc-Wpqixt-Auirfu Hx Patient Social History Marrital Status: single Substance use?: Unable to obtain Alcohol Use?: Yes Alcohol Frequency: Daily Pt feels they are or have been: Unable to obtain Current Status Advance Directives: Unable to obtain Communicates: Unable To Communicate Primary Language: Guinean Preferred Spoken Language: Guinean Past Medical History Emphysema Family Medical History No Pertinent Family Hx Review of Systems Constitutional: see HPI Physical Exam Physical Exam Vital Signs Vital Signs - First Documented 09/10/22 09/10/22 09/10/22 15:04 15:41 18:21 Temp 36.2 Pulse 146 Resp 25 B/P (MAP) 156/102 (120) Pulse Ox 98 O2 Delivery Ambu Bag O2 Flow Rate 100.00 FiO2 98 Capillary Refill : Greater Than 3 Seconds Height, Weight, BMI Height: '" Weight: lbs. oz. kg; 23.00 BMI Method: General Appearance: No Apparent Distress, WD/WN HEENT: PERRL/EOMI, Other (ET tube in place) Respiratory: Lungs Clear, No Respiratory Distress, Other (intubated and mechanically ventilated) Cardiovascular: No Murmur, Irregularly Irregular, Tachycardia Gastrointestinal: Normal Bowel Sounds, Soft Extremity: Normal Inspection, No Pedal Edema Neurologic/Psychiatric: Other (lethargic, opens eyes spontaneously, moving hands spontaneously) Skin: Normal Color, Cool Results Results/Procedures Labs Laboratory Tests 09/10/22 15:15 Patient resulted labs reviewed. Imaging: Reviewed Imaging Films, Reviewed Imaging Report Assessment/Plan Admission Diagnosis Cardiac arrest Admission Status: Inpatient Order (span 2 midnights) Reason for Inpatient Admission: AFib with RVR Heart failure Pneumonia Assessment and Plan Cardiac arrest Acute respiratory failure with hypoxia and hypercapnia Severe sepsis Pneumonia Pneumothorax Lactic acidosis Mixed respiratory and metabolic acidosis Acute heart failure with reduced ejection fraction Endotracheally intubated Atrial fibrillation with rapid ventricular response COPD TeleICU consulted Cardiology consulted Surgery consulted CXR with pneumothorax Chest tube placed Echo with EF 20-25% CT chest with emphysema, infiltrates CT head without acute abnormalities Vanc and Zosyn Cardizem Lovenox Critical Care Critically Ill Patient Diagnosis/Problems Diagnosis/Problems (1) Cardiac arrest Status: Acute (2) Acute respiratory failure with hypoxia and hypercapnia Status: Acute (3) PNA (pneumonia) (4) Lactic acidosis Status: Acute (5) Acute HFrEF (heart failure with reduced ejection fraction) Status: Acute (6) Endotracheally intubated Status: Acute (7) Atrial fibrillation with rapid ventricular response Status: Acute (8) Pneumothorax Status: Acute Qualifiers: Pneumothorax type: traumatic Encounter type: initial encounter Qualified Codes: S27.0XXA - Traumatic pneumothorax, initial encounter (9) COPD (chronic obstructive pulmonary disease) Status: Chronic (10) High anion gap metabolic acidosis Status: Acute (11) Respiratory acidosis Status: Acute (12) Severe sepsis Status: Acute Clinical Quality Measures AMI/AHF: ASA po Prior to arrival: ANIYAH Lepe MD Sep 10, 2022 19:37
[2022-09-10 20:10] VITALS: BP_SYST 135; BP_SYST 73; BP_DIAS 58; BP_DIAS 89
[2022-09-10] MEDS ORDERED: NOREPINEPHRINE 16 MG in NS (IVPB) 234 ML IV SCH (20:45)
[2022-09-10] MEDS ORDERED: VANCOMYCIN 500 MG/NS 100 ML IV ONE ×2 (21:30)
[2022-09-10] MEDS: NOREPINEPHRINE 8 MG/250 ML 250 ML IV SCH (21:31)
[2022-09-10] MEDS: PIPERACILLIN SODIUM/TAZOBACTAM 4.5 GM in NS (IVPB) 100 ML IV SCH (21:32)
[2022-09-10] MEDS: ENOXAPARIN 80 MG/0.8 ML (LOVENOX) SYR SC SCH (21:33)
[2022-09-10 22:04] VITALS: BP 80/63
[2022-09-11] MEDS: PROPOFOL DRIP (ICU) 100 ML IV SCH ×4 (01:25→22:46)
[2022-09-11 02:15] VITALS: BP 120/82
[2022-09-11] MEDS: ACETAMINOPHEN 325 MG TABLET PO PRN ×2 (02:40→07:52)
[2022-09-11] MEDS: fentaNYL DRIP PRE-MIX 250 ML IV SCH ×4 (02:43→19:47)
[2022-09-11 05:01] LABS: BASOPHILS # (AUTO) 0.1 10^3/uL (0.0-0.1); BASOPHILS % (AUTO) 1 % (0-10); EOSINOPHILS % (AUTO) 0 % (0-10); HEMATOCRIT 34 % (40-54); HEMOGLOBIN 10.9 g/dL (13.3-17.7); LYMPHOCYTES # (AUTO) 2.7 10^3/uL (1.0-4.0); LYMPHOCYTES % (AUTO) 32 % (12-44); MEAN CORPUSCULAR HEMOGLOBIN 34 pg (25-34); MEAN CORPUSCULAR HGB CONC 32 g/dL (32-36); MEAN CORPUSCULAR VOLUME 106 fL (80-99); MEAN PLATELET VOLUME 9.7 fL (9.0-12.2); MONOCYTES # (AUTO) 0.4 10^3/uL (0.0-1.0); MONOCYTES % (AUTO) 4 % (0-12); NEUTROPHILS # (AUTO) 5.3 10^3/uL (1.8-7.8); NEUTROPHILS % (AUTO) 62 % (42-75); PLATELET COUNT 163 10^3/uL (130-400); WHITE BLOOD COUNT 8.5 10^3/uL (4.3-11.0)
[2022-09-11 05:19] LABS: ALBUMIN 2.7 GM/DL (3.2-4.5); POTASSIUM 4.9 MMOL/L (3.6-5.0)
[2022-09-11 05:20] LABS: CALCIUM 8.3 MG/DL (8.5-10.1)
[2022-09-11 05:22] LABS: TOTAL PROTEIN 5.3 GM/DL (6.4-8.2)
[2022-09-11 05:23] LABS: BILIRUBIN,TOTAL 0.9 MG/DL (0.1-1.0)
[2022-09-11 05:23] LABS: ABG BASE EXCESS -3.1 MMOL/L (-2.5-2.5); ABG OXYGEN SATURATION 91 % (94-100); ABG PCO2 45 MMHG (35-45); ABG PO2 69 MMHG (79-93); ABG TCO2 23.4 MMOL/L (21.0-31.0)
[2022-09-11 05:24] LABS: ABG PH 7.31 (7.37-7.43); ALLENS TEST YES-POS; INSPIRED O2 30%; PATIENT TEMP 37.6; VENTILATOR YES
[2022-09-11 05:25] LABS: CREATININE SERUM 1.7 MG/DL (0.60-1.30)
[2022-09-11 05:27] LABS: BILIRUBIN,DIRECT 0.7 MG/DL (0.0-0.3); BILIRUBIN,INDIRECT 0.2 MG/DL
[2022-09-11] MEDS: NS IV 1000 ML 1,000 ML IV SCH ×4 (05:49→22:39)
[2022-09-11] MEDS: VANCOMYCIN 1500MG/300ML PREMIX IV SCH ×2 (05:49→17:38)
[2022-09-11] MEDS: PIPERACILLIN SODIUM/TAZOBACTAM 4.5 GM in NS (IVPB) 100 ML IV SCH ×3 (05:49→20:55)
[2022-09-11] MEDS ORDERED: NS IV 500 ML 500 ML IV PRN (06:00)
[2022-09-11] MEDS: MAGNESIUM 1 GM/100 ML IVPB 100 ML IV SCH ×4 (06:00→09:21)
[2022-09-11] MEDS: KCL 20 MEQ TAB (K-DUR) PO SCH (06:00)
[2022-09-11] MEDS: POTASSIUM CL 10MEQ/50ML IVPB 50 ML IV SCH (06:00)
[2022-09-11] MEDS: meTOprolol 5 MG/5 ML (LOPRESSOR) VIAL IV SCH ×5 (06:00→22:39)
[2022-09-11] MEDS: dilTIAZem DRIP PRE-MIX 125 ML IV SCH ×2 (06:57→20:56)
[2022-09-11 07:51] VITALS: BP 89/82
[2022-09-11] MEDS ORDERED: THIAMINE 100 MG/ML 2 ML (VITAMIN B-1) VIAL IV ONE (08:00)
[2022-09-11] MEDS ORDERED: NS IV 1000 ML 1,000 ML IV SCH ×2 (08:00→18:30)
[2022-09-11] MEDS: PANTOPRAZOLE 40 MG (PROTONIX) VIAL IV SCH (08:08)
[2022-09-11] MEDS: ENOXAPARIN 80 MG/0.8 ML (LOVENOX) SYR SC SCH ×2 (08:08→20:55)
--- NOTE | 2022-09-11 08:23 | Diagnostic Imaging Report ---
INDICATION: Pneumothorax, intubated. TECHNIQUE: Single view chest 7:58 AM. CORRELATION STUDY: 09/10/2022 FINDINGS: Endotracheal tube and gastric tube remain in place. A right-sided chest tube remains present, however, appears to have been retracted slightly since prior. Side-port just deep to the chest wall. Subcutaneous gas over the right chest. No appreciable pneumothorax. Extensive biapical opacities. Additional bilateral pulmonary opacities particularly in the perihilar region are noted. However, overall less pronounced and improved from prior. Heart size and mediastinum are generally stable. IMPRESSION: 1. Slight interval retraction of right-sided chest tube. No appreciable pneumothorax. 2. Scattered bilateral pulmonary opacities do persist but overall are improved. Extensive biapical pulmonary opacities stable. Dictated by: Dictated on workstation # [id number]
[2022-09-11] MEDS ORDERED: NS IV NR (08:30)
[2022-09-11] MEDS ORDERED: THIAMINE IV NR (08:30)
--- NOTE | 2022-09-11 08:54 | Cardiology Progress Note ---
Subjective Date Seen by Provider: Sep 11, 2022 Time Seen by Provider: 08:52 Subjective/Events-last exam Patient is intubated and sedated It was reported that he opens his eyes, still not following any commands. Has some cough reflex Focused Exam Lactate Level 09/10/22 15:15: Lactic Acid Level 9.80*H 09/10/22 18:30: Lactic Acid Level 3.30*H 09/10/22 20:38: Lactic Acid Level 1.88 Objective-Cardiology Exam Last Set of Vital Signs Vital Signs 09/11/22 09/11/22 09/11/22 09/11/22 07:51 07:52 08:00 08:32 Temp 37.9 Pulse 104 Resp 25 B/P (MAP) 114/75 Pulse Ox 100 O2 Delivery Mechanical Ventilator O2 Flow Rate 30.00 FiO2 30 I&O Intake and Output 09/11/22 00:00 Intake Total 120 ml Output Total 102 ml Balance 18 ml Intake IV Total 120 ml Other 0 ml Output Urine Total 100 ml Chest Tube Drainage Total 2 ml Daily Weight Change Yes, 2-13 lbs General: Moderate Distress HEENT: Atraumatic Neck: Supple, No JVD Lungs: Clear to Auscultation, Normal Air Movement Heart: Normal S1, Normal S2, Other (Atrial fibrillation) Abdomen: Normal Bowel Sounds, Soft Extremities: No Clubbing, No Cyanosis Skin: No Rashes, No Breakdown Neuro: Other (Sedated and intubated) Psych/Mental Status: Other (Sedated and intubated) Results Lab Laboratory Tests 09/10/22 15:15 09/11/22 04:35 A/P-Cardiology Admission Diagnosis Anoxic brain injury Acute respiratory failure Wide-complex tachycardia Hypotensive shock Assessment/Plan Anoxic brain injury, Currently ventilator dependent. Continue to monitor Witnessed collapse, questionable sudden On arrival to the emergency room had wide-complex tachycardia Was initially in atrial flutter, appears to be in atrial fibrillation, heart rate is slightly better on Cardizem drip Maintained on Lovenox Congestive heart failure, dilated cardiomyopathy with ejection fraction 25 to 30%. Unknown etiology Planning for cardiac catheterization Non-ST elevation myocardial infarction, mild elevation in troponin, probably secondary to the cardiac arrest We will plan to proceed with cardiac catheterization to exclude coronary artery disease Acute respiratory failure, ventilator dependent Managed by medical team Right pneumothorax, secondary to CPR, chest tube is in place. Lactic acidosis, receiving IV fluids, managed by medical team Questionable pneumonia noted on x-ray, managed by medical team CT of the chest with contrast reported as possible atelectasis versus pneumonia, no embolus or aneurysm CT angiogram of the head and neck did not show any catastrophic stroke or bleed CHINYERE VARGAS MD Sep 11, 2022 08:54
[2022-09-11] MEDS ORDERED: RT-ALBUTEROL/IPRATROPIUM 3 ML (DUONEB) VIAL INH PRN (09:00)
[2022-09-11] MEDS ORDERED: THIAMINE INJECTION 100 MG in NS (IVPB) 50 ML IV SCH (09:00)
[2022-09-11] MEDS ORDERED: PANTOPRAZOLE 40 MG (PROTONIX) VIAL IV SCH (09:00)
[2022-09-11] MEDS ORDERED: HEParin (CATH LAB) 2,000 ML IV ONE (09:34)
[2022-09-11] MEDS ORDERED: LIDOCAINE 1% INJ 20 ML VIAL ONE (09:34)
--- NOTE | 2022-09-11 10:00 | Tele-ICU Progress Note ---
Subjective Date Seen by a Provider: Sep 11, 2022 Time Seen by a Provider: 10:00 Subjective/Events-last exam (Tele-ICU Physician , Progress Note ) Service provided via interactive audio and video telecommunications E-CARE system to a patient admitted to ICU bed in [facility]. Patient is seen today due to persistent need of ICU care Available chart/ vitals / labs / Images reviewed Video assessment done using teleICU camera, rest of exam as per RN He is a 62-year-old male with history of for chronic alcohol abuse apparently was found unresponsive in the bed by his fiance/girlfriend with eyes rolled back and she checked on him and did not feel pulse and she is started CPR on he did not have a started CPR and obtained ROSC. Achieving ROSC apparently he was breathing with a backing. However, no rest to painful stimuli he has a lateral pinpoint. He was brought to the emergency room he is intubated and put on mechanical ventilation and a chest x-ray done which showed right-sided pneumothorax and it is felt that his pneumothorax is due to his CPR. A chest tube is inserted subsequently admitted to the intensive care unit. He was evaluated by the investigator welfare. Reportedly he had a wide QRS tachycardia initially followed by atrial fibrillation with rapid ventricular ra te which is new for him and started on IV Cardizem drip vit H his heart rate is somewhat controlled. He is hypotensive currently on a low-dose Levophed. This a.m. I have reviewed with the ICU nurse and she tells me that patient has point pupils does not follow any commands. He is spontaneously reaching out to his ET tube. I have ordered another chest x-ray for this a.m. which showed retraction of the right chest tube to some extent. Surgical consultation already has been requested to follow-up chest tube. Just felt that he may have a radial artery disease he is being taken to the cardiac Utilization Review Rn today. CT chest angiogram revealed that he had a extensive bullous emphysema with possible aspiration pneumonia in the right presence of chest tube and ET tube he is also started on IV thiamine. According to his reportedly he was to take the metoprolol in the but he was not taking. He is in heavy smoker reportedly. Today showed mild estimated ejection fraction of 25-30% dilatation of the right ventricle also. Impression 1. Status postcardiac arrest witnessed at home CPR done obtained ROSC. 2. Acute hypoxic respiratory failure iatrogenic secondary to cpr. 3. Extensive bullous emphysema with aspiration pneumonia 4. 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 Possible underlying RA artery disease with elevated troponin 6. New onset atrial fibrillation with rapid ventricular rate 7. Possible nonsustained ventricular tachycardia. 8. Alcohol abuse disorder 9. Echo abuse disorder 10. Possible hypoxic/anoxic encephalopathy. Recommendations 1. Continue mechanical ventilatory support and monitor blood gases 2. We will give him 1 L of normal saline bolus to improve his pressure. Continue Cardizem drip for cardiology 3. IV antibiotics per primary care physician 4. DVT prophylaxis and ulcer prophylaxis 5. Continue Levophed and wean as tolerate 6. Cardiac catheterization this a.m. per cardiology. 7. Surgical consultation has been requested to address chest tube 8. We will give him bronchodilator therapy as needed 9. Monitor for any alcohol withdrawal syndrome he came back fro laboratory secretary revealed 100% occlusion of RCA and pci done with 2 stents. please see cath report Coordination of care with primary care physician and bedside. I am remotely monitoring this patient from Tele icu station in [place]. I am unable to do the bedside exam, and history/physical and pertinent information is taken from other notes in the computer and bedside staff. Certain portions of this document may have been dictated utilizing voice recognition technology such as [employer]. Inherent to this technology, typographical and grammatical errors may exist. As much as I am diligent to identify and correct to these mistakes, some errors may remain in the document. Critical care time devoted to this patient today is approximately is 35 minutes-- Sepsis Event Evaluation Height, Weight, BMI Height: '" Weight: lbs. oz. kg; 23.04 BMI Method: Focused Exam Lactate Level 09/10/22 15:15: Lactic Acid Level 9.80*H 09/10/22 18:30: Lactic Acid Level 3.30*H 09/10/22 20:38: Lactic Acid Level 1.88 Exam Exam Patient acknowledged, consented, and participated in this virtual visit which was conducted using real time audio/video Vital Signs Date Time Temp Pulse Resp B/P (MAP) Pulse Ox O2 Delivery O2 Flow Rate FiO2 09/11/22 09:00 98 26 104/75 (82) 100 Mechanical Ventilator 30.00 09/11/22 08:35 37.7 09/11/22 08:32 104 114/75 09/11/22 08:00 105 25 107/68 (75) 100 Mechanical Ventilator 30.00 09/11/22 07:52 37.9 09/11/22 07:51 122 27 100 30 09/11/22 07:43 37.9 09/11/22 07:00 90 23 100/71 (80) 100 Mechanical Ventilator 30.00 09/11/22 07:00 105 09/11/22 06:57 112 106/76 09/11/22 06:43 112 106/76 09/11/22 06:00 112 24 106/76 (86) 100 Mechanical Ventilator 30.00 09/11/22 05:25 112 106/76 09/11/22 05:00 107 23 98/75 (83) 100 Mechanical Ventilator 30.00 09/11/22 04:43 Mechanical Ventilator 30.00 09/11/22 04:00 105 23 111/84 (93) 100 Mechanical Ventilator 40.00 09/11/22 04:00 98 Mechanical Ventilator 30 09/11/22 03:30 30 09/11/22 03:10 37.6 09/11/22 03:00 110 24 94/72 (79) 99 Mechanical Ventilator 40.00 09/11/22 02:43 113 120/82 09/11/22 02:40 38.2 09/11/22 02:15 113 24 100 30 09/11/22 02:00 110 26 120/82 (95) 100 Mechanical Ventilator 40.00 09/11/22 01:25 102 102/80 09/11/22 01:00 108 20 128/83 (98) 100 Mechanical Ventilator 40.00 09/11/22 01:00 102 09/11/22 00:00 96 20 102/79 (87) 100 Mechanical Ventilator 40.00 09/10/22 23:59 100 Mechanical Ventilator 30 09/10/22 23:30 40 09/10/22 23:00 98 29 111/72 (85) 100 Mechanical Ventilator 40.00 09/10/22 22:06 Mechanical Ventilator 40.00 09/10/22 22:04 95 24 99 40 09/10/22 22:00 101 24 98/75 (83) 100 Mechanical Ventilator 100.00 09/10/22 21:31 97 73/58 09/10/22 21:00 100 28 77/56 (63) 100 Mechanical Ventilator 100.00 09/10/22 20:10 97 24 98 50 09/10/22 20:10 50 09/10/22 20:00 100 Mechanical Ventilator 100 09/10/22 20:00 92 30 78/55 (63) 100 Mechanical Ventilator 100.00 09/10/22 19:30 100 09/10/22 19:00 102 18 96/81 (86) 100 Mechanical Ventilator 100.00 09/10/22 19:00 102 09/10/22 18:56 123 135/89 09/10/22 18:56 123 135/89 09/10/22 18:53 123 18 135/89 98 Mechanical Ventilator 100.00 09/10/22 18:31 144 09/10/22 18:30 98 Mechanical Ventilator 100 09/10/22 18:21 37.0 140 20 129/81 (97) 94 Mechanical Ventilator 100.00 09/10/22 18:19 135 18 100 100 09/10/22 15:56 158 99/82 09/10/22 15:56 160 99/82 09/10/22 15:52 160 18 95 100 09/10/22 15:41 36.2 146 25 156/102 (120) 98 Ambu Bag 09/10/22 15:15 Ambu Bag 09/10/22 15:04 Ambu Bag 98 I & O 09/11/22 07:00 Intake Total 665 ml Output Total 287 ml Balance 378 ml Height & Weight Height: '" Weight: lbs. oz. kg; 23.04 BMI Method: General Appearance: No Apparent Distress, WD/WN HEENT: PERRL/EOMI, Other (ET tube in place) Neck: Normal Inspection Respiratory: Lungs Clear, No Respiratory Distress, Other (intubated and mechanically ventilated) Cardiovascular: No Murmur, Irregularly Irregular, Tachycardia Capillary Refill: Greater Than 3 Seconds Extremity: Normal Inspection, No Pedal Edema Neurologic/Psychiatric: Other (lethargic, opens eyes spontaneously, moving hands spontaneously) Skin: Normal Color, Cool Results Lab Laboratory Tests 09/10/22 15:15 09/11/22 04:35 Procedures PROCEDURE REPORT Cardiac Cath Report Physician (s)/Polishing Machine Tender (s) Physician CHINYERE VARGAS MD Pre-Procedure Diagnosis Pre-Procedure Diagnosis: Coronary artery disease Post-Procedure Note Procedure Start Date: Sep 11, 2022 Name of Procedure: Left heart catheterization Stenting to the right coronary artery Findings/Procedure Note PROCEDURE NOTE: 62-year-old gentleman admitted with cardiac arrest at home, had CPR. Arrived to the emergency room then he was intubated, had wide-complex tachycardia initially, cardiomyopathy was noted on echocardiogram Patient was unresponsive, had anoxic brain injury. This morning he was slightly better arousable, not following commands yet. I discussed with his daughter the management plan and recommended cardiac catheterization. After explaining the procedure to the daughter, all pros and cons were explained, all questions were answered. The patient signed the consent and then he was placed in the cardiac catheterization laboratory. Groin was prepped in SL fashion local anesthesia was used. Sheath placed in the artery. Ziyad' right and left catheter were used to access the coronary system. Ziyad right was prolapsed to the left ventricular cavity, pressure was measured, pullback LV to aorta was done. Patient received Lovenox 70 mg earlier this morning I gave him 5000 units of heparin. Ziyad right guide with sideholes was advanced to the right coronary artery, I had difficulty advancing Storq with intermediate support through the total occlusion of the right coronary artery, I used 2.5 x 20 mm balloon to support the wire then I was able to push it and parked it distally, did multiple inflation at the proximal and mid right coronary artery, patient has heavy calcification and total occlusion. Reestablish flow. I decided to proceed with stenting. I used Osiro 2.75 x 35 mm, was unable to advance it, did another balloon angioplasty and tried again without success I advanced a whisper extra-support wire and tried over that wire without success I advanced the balloon again and advanced GuideLiner to the mid right coronary artery then advanced the stent over the guide liner then pulled out the guide liner. While I was trying to position the stent proximally there was significant tension on the stent and it gets prong back and I was unable to advance it again I advanced the balloon then the guide liner again then advanced the stent and removed the guide liner and the balloon, the stent was positioned carefully and I deployed it up to 2.8 mm distally and 3.5 mm proximally After removing the wires and the balloon I did angiogram and saw some haziness at the midportion I decided to attempt to stent. I advanced a BMW wire and parked it distally then try to advance Osiro 2.5 x 22 mm and was unable to advance it due to heavy calcification I really did balloon angioplasty to that area then I was able to advance the stent deployed it then postdilated using noncompliant trek 2.75 x 20 mm up to 2.6 mm distally and 2.8 mm at the overlap area. Angiogram showed excellent results. No residual stenosis At the end of the procedure the sheath was removed. Closure device was deployed FINDINGS: Hemodynamics LV 96/16, end-diastolic pressure of 16 Aorta 93/76 with mean of 69 ANATOMY: Left Main is free of obstructive disease Left Anterior Descending is tortuous artery with 50 to 60% stenosis at the mid LAD. I did not do IFR due to the heavy contrast used during the complex proc edure and planning to evaluate it at a later point Left Circumflex is codominant artery moderate in size with no obstructive disease Ramus intermedius has proximal 50 to 60% stenosis, I did not do IFR due to the heavy contrast used and the complex intervention on the right coronary artery and planning to evaluated at a later point Right Coronary Artery was totally occluded proximally, heavily calcified artery codominant artery. Complex intervention with deployment of 2 overlapping stents proximally Osiro 2.75 x 35 mm overlapping with mid 2.5 x 22 mm the stents were postdilated distally to 2.75 mm and at the overlap area 2.8 mm and at the proximal right coronary artery 3.6 mm. LV Gram was not done, pressure was measured PERCUTANEOUS INTERVENTION: Pre stenosis 100% Post Stenosis 0% Pre KAITLIN flow 0 Post KAITLIN flow 3 Dominance codominant right coronary artery and circumflex artery CONCLUSION: Total occlusion of the right coronary artery with complex intervention and deployment of 2 overlapping Osiro drug-eluting stents proximally 2.75 x 35 mm and midportion 2.5 x 22 mm expanded distally to 2.75 mm and at the ostium proximally 3.5 mm with no residual stenosis 50 to 60% stenosis at the mid LAD and proximal ramus intermedius branch which will be evaluated later point, did not do IFR during the procedure due to the large amount of contrast used Mildly elevated left ventricular end-diastolic pressure DISCUSSION AND RECOMMENDATION: Patient was loaded with aspirin and Brilinta. We will continue monitoring Anesthesia Type: Conscious Sedation Estimated blood loss (mL): 35 ml Contrast Amount: 240 ml Total Radiation Dose: 2023 mGy Post-Procedure Diagnosis Post-operative diagnosis: Non-ST elevation myocardial infarction Sudden cardiac Congestive heart failure, acute left ventricular systolic dysfunction, ischemic cardiomyopathy Acute respiratory failure CHINYERE VARGAS MD Sep 11, 2022 12:06 [id number] <Created by CHINYERE VARGAS MD> Assessment/Plan Assessment/Plan as above Critical Care: Critically Ill Patient Time spent with patient (mins): 35 DAVID HUERTA MD Sep 11, 2022 10:00
[2022-09-11] MEDS ORDERED: HEParin 1000 UNIT/ML (10ML VIAL) FOR BOLUS ONE (10:34)
[2022-09-11] MEDS ORDERED: AMIODARONE 150 MG/3 ML (CORDARONE) VIAL IV ONE (10:37)
[2022-09-11] MEDS ORDERED: ROCURONIUM 50 MG/5 ML (ZEMURON) VIAL IV ONE (10:37)
[2022-09-11] MEDS ORDERED: ETOMIDATE IV SOLN 20 MG/10 ML VIAL IV ONE (10:37)
[2022-09-11] MEDS ORDERED: NALOXONE 2 MG/2 ML (NARCAN) SYR IV ONE (10:37)
[2022-09-11] MEDS ORDERED: ASPIRIN 325 MG (5 GR) TABLET ONE (11:59)
[2022-09-11] MEDS ORDERED: TICAGRELOR 90 MG TABLET (BRILINTA) PO ONE (12:00)
[2022-09-11] MEDS ORDERED: PATIENT MAY USE OWN MEDS, ALL PO SCH (12:00)
--- NOTE | 2022-09-11 12:06 | Cardiac Cath Report ---
Cardiac Cath Report Physician (s)/Work Measurement Engineer (s) Physician CHINYERE VARGAS MD Pre-Procedure Diagnosis Pre-Procedure Diagnosis: Coronary artery disease Post-Procedure Note Procedure Start Date: Sep 11, 2022 Name of Procedure: Left heart catheterization Stenting to the right coronary artery Findings/Procedure Note PROCEDURE NOTE: 62-year-old gentleman admitted with cardiac arrest at home, had CPR. Arrived to the emergency room then he was intubated, had wide-complex tachycardia initially, cardiomyopathy was noted on echocardiogram Patient was unresponsive, had anoxic brain injury. This morning he was slightly better arousable, not following commands yet. I discussed with his daughter the management plan and recommended cardiac catheterization. After explaining the procedure to the daughter, all pros and cons were explained, all questions were answered. The patient signed the consent and then he was placed in the cardiac catheterization laboratory. Groin was prepped in SL fashion local anesthesia was used. Sheath placed in the artery. Ziyad' right and left catheter were used to access the coronary system. Ziyad right was prolapsed to the left ventricular cavity, pressure was measured, pullback LV to aorta was done. Patient received Lovenox 70 mg earlier this morning I gave him 5000 units of heparin. Ziyad right guide with sideholes was advanced to the right coronary artery, I had difficulty advancing Storq with intermediate support through the total occlusion of the right coronary artery, I used 2.5 x 20 mm balloon to support the wire then I was able to push it and parked it distally, did multiple inflation at the proximal and mid right coronary artery, patient has heavy calcification and total occlusion. Reestablish flow. I decided to proceed with stenting. I used Osiro 2.75 x 35 mm, was unable to advance it, did another balloon angioplasty and tried again without success I advanced a whisper extra-support wire and tried over that wire without success I advanced the balloon again and advanced GuideLiner to the mid right coronary artery then advanced the stent over the guide liner then pulled out the guide liner. While I was trying to position the stent proximally there was significant tension on the stent and it gets prong back and I was unable to advance it again I advanced the balloon then the guide liner again then advanced the stent and removed the guide liner and the balloon, the stent was positioned carefully and I deployed it up to 2.8 mm distally and 3.5 mm proximally After removing the wires and the balloon I did angiogram and saw some haziness at the midportion I decided to attempt to stent. I advanced a BMW wire and parked it distally then try to advance Osiro 2.5 x 22 mm and was unable to advance it due to heavy calcification I really did balloon angioplasty to that area then I was able to advance the stent deployed it then postdilated using noncompliant trek 2.75 x 20 mm up to 2.6 mm distally and 2.8 mm at the overlap area. Angiogram showed excellent results. No residual stenosis At the end of the procedure the sheath was removed. Closure device was deployed FINDINGS: Hemodynamics LV 96/16, end-diastolic pressure of 16 Aorta 93/76 with mean of 69 ANATOMY: Left Main is free of obstructive disease Left Anterior Descending is tortuous artery with 50 to 60% stenosis at the mid LAD. I did not do IFR due to the heavy contrast used during the complex procedure and planning to evaluate it at a later point Left Circumflex is codominant artery moderate in size with no obstructive disease Ramus intermedius has proximal 50 to 60% stenosis, I did not do IFR due to the heavy contrast used and the complex intervention on the right coronary artery and planning to evaluated at a later point Right Coronary Artery was totally occluded proximally, heavily calcified artery codominant artery. Complex intervention with deployment of 2 overlapping stents proximally Osiro 2.75 x 35 mm overlapping with mid 2.5 x 22 mm the stents were postdilated distally to 2.75 mm and at the overlap area 2.8 mm and at the proximal right coronary artery 3.6 mm. LV Gram was not done, pressure was measured PERCUTANEOUS INTERVENTION: Pre stenosis 100% Post Stenosis 0% Pre KAITLIN flow 0 Post KAITLIN flow 3 Dominance codominant right coronary artery and circumflex artery CONCLUSION: Total occlusion of the right coronary artery with complex intervention and deployment of 2 overlapping Osiro drug-eluting stents proximally 2.75 x 35 mm and midportion 2.5 x 22 mm expanded distally to 2.75 mm and at the ostium proximally 3.5 mm with no residual stenosis 50 to 60% stenosis at the mid LAD and proximal ramus intermedius branch which will be evaluated later point, did not do IFR during the procedure due to the large amount of contrast used Mildly elevated left ventricular end-diastolic pressure DISCUSSION AND RECOMMENDATION: Patient was loaded with aspirin and Brilinta. We will continue monitoring Anesthesia Type: Conscious Sedation Estimated blood loss (mL): 35 ml Contrast Amount: 240 ml Total Radiation Dose: 2022 mGy Post-Procedure Diagnosis Post-operative diagnosis: Non-ST elevation myocardial infarction Sudden cardiac Congestive heart failure, acute left ventricular systolic dysfunction, ischemic cardiomyopathy Acute respiratory failure CHINYERE VARGAS MD Sep 11, 2022 12:06
--- NOTE | 2022-09-11 12:09 | Consultation - Surgery ---
History of Present Illness History of Present Illness Patient Consulted On(donn/time) 09/11/22 12:03 Date Seen by Provider: Sep 11, 2022 Time Seen by Provider: 08:00 Reason for Visit: Cardiac arrest History of Present Illness Consult requested by Dr. Coon for central line placement. Patient is a 62-year-old male presented to the ED via EMS last night after an episode of cardiac arrest. History is unable to be obtained from the patient due to his condition. History is obtained from the patient's girlfriend and records. His girlfriend reports that the patient was laying bed when she saw his eyes "roll back into his head". She was unable to find a pulse and immediately started CPR and called for EMS. EMS took over CPR on arrival and patient did have ROSC. Patient was unresponsive after arriving to the ED, GCS:3. Patient was found to have a pneumothorax, and a chest tube was placed in the ED. The patient is currently on a ventilator. Patient did spontaneously open his eyes while being examined this morning, but was otherwise unresponsive. Allergies and Home Medications Allergies Coded Allergies: No Known Drug Allergies (Unverified , 09/10/22) Patient Home Medication List Acetaminophen/Diphenhydramine (Tylenol Pm Ex-Strength Caplet) 500 Mg-25 Mg Tablet, 2 EACH PO HS, (Reported) Entered as Reported by: ELIA MURPHY on 09/12/22 1201 Last Action: Reviewed Past Mnfehpk-Tknxml-Yiyvxk Hx Patient Social History Smoking Status: Current Everyday Smoker (1PPD for 20-30 years per pt's girlfrie nd) Alcohol Use?: Yes (per patient's girlfriend, 2 pints of vodka daily) Have you traveled recently?: No Respiratory Respiratory Disorders: Emphysema Family Medical History Significant Family History: No Pertinent Family Hx Review of Systems-General ROS-Unable to Obtain: Patient unresponsive Physical Exam-General Problems Physical Exam Vital Signs Vital Signs - First Documented 09/10/22 09/10/22 09/10/22 15:04 15:41 18:21 Temp 36.2 Pulse 146 Resp 25 B/P (MAP) 156/102 (120) Pulse Ox 98 O2 Delivery Ambu Bag O2 Flow Rate 100.00 FiO2 98 Capillary Refill : Greater Than 3 Seconds General Appearance: WD/WN, no apparent distress, other (Unresponsive) HEENT: other (ET tube in place) Neck: supple Respiratory: no respiratory distress, no accessory muscle use, other (On ventilator) Cardiovascular: normal peripheral pulses, no edema, other (In afib while in room, rate in the mid 80s) Gastrointestinal: soft Rectal: deferred Back: no CVA tenderness, no vertebral tenderness Extremities: no pedal edema, no calf tenderness, normal capillary refill Neurologic/Psychiatric: other (Unresponsive) Skin: normal color, warm/dry Lymphatic: no adenopathy (cervical) Data Review Labs Laboratory Tests 09/10/22 15:15: White Blood Count 16.2H, Red Blood Count 3.93L, Hemoglobin 13.4, Hematocrit 43, Mean Corpuscular Volume 110H, Mean Corpuscular Hemoglobin 34, Mean Corpuscular Hemoglobin Concent 31L, Red Cell Distribution Width 20.1H, Platelet Count 215, Mean Platelet Volume 10.3, Immature Granulocyte % (Auto) 2, Neutrophils (%) (Auto) 34L, Lymphocytes (%) (Auto) 60H, Monocytes (%) (Auto) 4, Eosinophils (%) (Auto) 0, Basophils (%) (Auto) 0, Neutrophils # (Auto) 5.5, Lymphocytes # (Auto) 9.7H, Monocytes # (Auto) 0.7, Eosinophils # (Auto) 0.0, Basophils # (Auto) 0.1, Immature Granulocyte # (Auto) 0.3H, Neutrophils % (Manual) 34, Lymphocytes % (Manual) 60, Monocytes % (Manual) 6, Nucleated Red Blood Cells 1, Poikilocytosis SLIGHT, Macrocytosis SLIGHT, Sodium Level 141, Potassium Level 4.8, Chloride Level 101, Carbon Dioxide Level 17L, Anion Gap 23H, Blood Urea Nitrogen 15, Creatinine 0.77, Estimat Glomerular Filtration Rate 102, BUN/Creatinine Ratio 19, Glucose Level 197H, Lactic Acid Level 9.80*H, Calcium Level 10.5H, Corrected Calcium 10.8H, Magnesium Level 2.4, Total Bilirubin 0.4, Aspartate Amino Transf (AST/SGOT) 117H, Alanine Aminotransferase (ALT/SGPT) 41, Alkaline Phosphatase 101, Myoglobin 202.5H, Troponin I < 0.028, B-Type Natriuretic Peptide 423.5H, Total Protein 6.8, Albumin 3.6, Triglycerides Level 118, Salicylates Level < 5.0L, Acetaminophen Level < 10L 4/15/23 15:30: Blood Gas Puncture Site RIGHT RADIAL, Blood Gas Patient Temperature 36.2, Arterial Blood pH 6.98*L, Arterial Blood Partial Pressure CO2 83*H, Arterial Blood Partial Pressure O2 252H, Arterial Blood HCO3 19L, Arterial Blood Total CO2 21.6, Arterial Blood Oxygen Saturation 99, Arterial Blood Base Excess -11.3L , Alvarez Test NA, Blood Gas Ventilator Setting YES, Blood Gas Inspired Oxygen 100 09/10/22 16:15: Prothrombin Time 16.2H, INR Comment 1.3, Activated Partial Thromboplast Time 33 09/10/22 17:10: Urine Opiates Screen POSITIVEH, Urine Oxycodone Screen NEGATIVE, Urine Methadone Screen NEGATIVE, Urine Propoxyphene Screen NEGATIVE, Urine Barbiturates Screen POSITIVEH, Ur Tricyclic Antidepressants Screen NEGATIVE, Urine Phencyclidine Screen NEGATIVE, Urine Amphetamines Screen NEGATIVE, Urine Methamphetamines Screen NEGATIVE, Urine Benzodiazepines Screen NEGATIVE, Urine Cocaine Screen NEGATIVE, Urine Cannabinoids Screen NEGATIVE 09/10/22 18:14: Blood Gas Puncture Site RIGHT RADIAL, Blood Gas Patient Temperature 38, Arterial Blood pH 7.07*L, Arterial Blood Partial Pressure CO2 88*H, Arterial Blood Partial Pressure O2 406H, Arterial Blood HCO3 24, Arterial Blood Total CO2 26.4, Arterial Blood Oxygen Saturation 100, Arterial Blood Base Excess -5.0L, Alvarez Test NA, Blood Gas Ventilator Setting YES, Blood Gas Inspired Oxygen 100 09/10/22 18:30: Lactic Acid Level 3.30*H 09/10/22 20:38: Lactic Acid Level 1.88 09/11/22 04:35: White Blood Count 8.5, Red Blood Count 3.23L, Hemoglobin 10.9L, Hematocrit 34L, Mean Corpuscular Volume 106H, Mean Corpuscular Hemoglobin 34, Mean Corpuscular Hemoglobin Concent 32, Red Cell Distribution Width 19.9H, Platelet Count 163, Mean Platelet Volume 9.7, Immature Granulocyte % (Auto) 1, Neutrophils (%) (Auto) 62, Lymphocytes (%) (Auto) 32, Monocytes (%) (Auto) 4, Eosinophils (%) (Auto) 0, Basophils (%) (Auto) 1, Neutrophils # (Auto) 5.3, Lymphocytes # (Auto) 2.7, Monocytes # (Auto) 0.4, Eosinophils # (Auto) 0.0, Basophils # (Auto) 0.1, Immature Granulocyte # (Auto) 0.1, Sodium Level 141, Potassium Level 4.9, Chloride Level 109H, Carbon Dioxide Level 18L, Anion Gap 14, Blood Urea Nitrogen 23H, Creatinine 1.70H, Estimat Glomerular Filtration Rate 45, BUN/Creatinine Ratio 14, Glucose Level 98, Calcium Level 8.3L, Magnesium Level 1.5L, Total B ilirubin 0.9, Direct Bilirubin 0.7H, Indirect Bilirubin 0.2, Aspartate Amino Transf (AST/SGOT) 266H, Alanine Aminotransferase (ALT/SGPT) 66H, Alkaline Phosphatase 61, Troponin I 0.416*H, Total Protein 5.3L, Albumin 2.7L, Triglycerides Level 115, Cholesterol Level 90, LDL Cholesterol Direct 38, VLDL Cholesterol 23, HDL Cholesterol 32L 09/11/22 05:05: Blood Gas Puncture Site L RAD, Blood Gas Patient Temperature 37.6, Arterial Blood pH 7.31*L, Arterial Blood Partial Pressure CO2 45, Arterial Blood Partial Pressure O2 69L, Arterial Blood HCO3 22L, Arterial Blood Total CO2 23.4, Arterial Blood Oxygen Saturation 91L, Arterial Blood Base Excess -3.1L, Alvarez Test YES-POS, Blood Gas Ventilator Setting YES, Blood Gas Inspired Oxygen 30% Assessment/Plan Assessment/Plan Assessment/Plan Cardiac arrest Acute on chronic respiratory failure ETOH abuse Emphysema Patient in need of central line placement for venous access, will place today Clinical Quality Measures AMI/AHF: ASA po Prior to arrival: No RAFA BROOKS Sep 11, 2022 12:09
[2022-09-11 12:31] VITALS: BP 121/92
[2022-09-11] MEDS: FOLIC ACID 5MG/ML 10 ML IV SCH (12:32)
[2022-09-11] MEDS: aCETylcysteine 20% (MUCOMYST) 4 ML SOLN VIAL INH SCH ×3 (12:38→21:50)
[2022-09-11] MEDS: RT-ALBUTEROL/IPRATROPIUM 3 ML (DUONEB) VIAL INH SCH ×2 (12:39→18:34)
--- NOTE | 2022-09-11 13:45 | Consultation - Surgery ---
History of Present Illness History of Present Illness Patient Consulted On(donn/time) 09/11/22 13:41 Time Seen by Provider: 12:51 Reason for Visit: Cardiac arrest History of Present Illness Surgery asked to consult regarding Venous insufficiency HPI per ED: Patient is a 62-year-old male who presents to the emergency room by ambulance after witnessed cardiac arrest at home with his girlfriend. He was laying in bed, girlfriend states that she saw his eyes "rolled back". She went to check on him and did not believe that he had a pulse. She started CPR and called 911. They instructed her to move him to the floor where she continued CPR EMS arrived, CPR continued, LMA was placed. Intraosseous line to the left tib-fib fluids started. Glucose reported prior to arrival greater than 200. No medications were given and ROSC was achieved shortly after EMS arrival with CPR. Patient is noted to be breathing with bagging. Nonresponsive to painful stimuli. Pinpoint pupils bilaterally. No obvious outward signs of trauma. Girlfriend arrived later and states that they had both been ill for about a week with congestion, cough. He had taken an antibiotic pill yesterday and 1 today for symptoms. He is a chronic alcoholic. Drinks vodka daily. She states he is only been drinking to prevent the "shakes". He does not take any daily medications. No allergies to medications. She states he has been advised to take metoprolol in the past for blood pressure. He is a smoker. Pt intubated and sedated when I saw him, info obtained from chart and nurse. Allergies and Home Medications Allergies Coded Allergies: No Known Drug Allergies (Unverified , 09/10/22) Patient Home Medication List Home Medication List Reviewed: Yes Past Wflccpo-Ewlwox-Kpmyyp Hx Patient Social History Smoking Status: Current Everyday Smoker (1PPD for 20-30 years per pt's girlfriend) Alcohol Use?: Yes (per patient's girlfriend, 2 pints of vodka daily) Have you traveled recently?: No Respiratory Respiratory Disorders: Emphysema Family Medical History Significant Family History: No Pertinent Family Hx Review of Systems-General ROS-Unable to Obtain: pt intubated and sedated Physical Exam-General Problems Physical Exam Vital Signs Vital Signs - First Documented 09/10/22 09/10/22 09/10/22 15:04 15:41 18:21 Temp 36.2 Pulse 146 Resp 25 B/P (MAP) 156/102 (120) Pulse Ox 98 O2 Delivery Ambu Bag O2 Flow Rate 100.00 FiO2 98 Capillary Refill : Less Than 3 Seconds General Appearance: other (intubated and sedated) Respiratory: no respiratory distress, no accessory muscle use, decreased breath sounds (right side), crackles, other (on vent, CT in right pleural cavity no air leak in pleura-vac) Cardiovascular: regular rate, rhythm, no murmur Gastrointestinal: non tender, soft, no organomegaly Data Review Labs Laboratory Tests 09/10/22 15:15: White Blood Count 16.2H, Red Blood Count 3.93L, Hemoglobin 13.4, Hematocrit 43, Mean Corpuscular Volume 110H, Mean Corpuscular Hemoglobin 34, Mean Corpuscular Hemoglobin Concent 31L, Red Cell Distribution Width 20.1H, Platelet Count 215, Mean Platelet Volume 10.3, Immature Granulocyte % (Auto) 2, Neutrophils (%) (Auto) 34L, Lymphocytes (%) (Auto) 60H, Monocytes (%) (Auto) 4, Eosinophils (%) (Auto) 0, Basophils (%) (Auto) 0, Neutrophils # (Auto) 5.5, Lymphocytes # (Auto) 9.7H, Monocytes # (Auto) 0.7, Eosinophils # (Auto) 0.0, Basophils # (Auto) 0.1, Immature Granulocyte # (Auto) 0.3H, Neutrophils % (Manual) 34, Lymphocytes % (Manual) 60, Monocytes % (Manual) 6, Nucleated Red Blood Cells 1, Poikilocytosis SLIGHT, Macrocytosis SLIGHT, Sodium Level 141, Potassium Level 4.8, Chloride Level 101, Carbon Dioxide Level 17L, Anion Gap 23H, Blood Urea Nitrogen 15, Creatinine 0.77, Estimat Glomerular Filtration Rate 102, BUN/Creatinine Ratio 19, Glucose Level 197H, Lactic Acid Level 9.80*H, Calcium Level 10.5H, Corrected Calcium 10.8H, Magnesium Level 2.4, Total Bilirubin 0.4, Aspartate Amino Transf (AST/SGOT) 117H, Alanine Aminotransferase (ALT/SGPT) 41, Alkaline Phosphatase 101, Myoglobin 202.5H, Troponin I < 0.028, B-Type Natriuretic Peptide 423.5H, Total Protein 6.8, Albumin 3.6, Triglycerides Level 118, Salicylates Level < 5.0L, Acetaminophen Level < 10L 09/10/22 15:30: Blood Gas Puncture Site RIGHT RADIAL, Blood Gas Patient Temperature 36.2, Arterial Blood pH 6.98*L, Arterial Blood Partial Pressure CO2 83*H, Arterial Blood Partial Pressure O2 252H, Arterial Blood HCO3 19L, Arterial Blood Total CO2 21.6, Arterial Blood Oxygen Saturation 99, Arterial Blood Base Excess -11.3L , Alvarez Test NA, Blood Gas Ventilator Setting YES, Blood Gas Inspired Oxygen 100 09/10/22 16:15: Prothrombin Time 16.2H, INR Comment 1.3, Activated Partial Thromboplast Time 33 09/10/22 17:10: Urine Opiates Screen POSITIVEH, Urine Oxycodone Screen NEGATIVE, Urine Methadone Screen NEGATIVE, Urine Propoxyphene Screen NEGATIVE, Urine Barbiturates Screen POSITIVEH, Ur Tricyclic Antidepressants Screen NEGATIVE, Urine Phencyclidine Screen NEGATIVE, Urine Amphetamines Screen NEGATIVE, Urine Methamphetamines Screen NEGATIVE, Urine Benzodiazepines Screen NEGATIVE, Urine Cocaine Screen NEGATIVE, Urine Cannabinoids Screen NEGATIVE 09/10/22 18:14: Blood Gas Puncture Site RIGHT RADIAL, Blood Gas Patient Temperature 38, Arterial Blood pH 7.07*L, Arterial Blood Partial Pressure CO2 88*H, Arterial Blood Partial Pressure O2 406H, Arterial Blood HCO3 24, Arterial Blood Total CO2 26.4, Arterial Blood Oxygen Saturation 100, Arterial Blood Base Excess -5.0L, Alvarez Test NA, Blood Gas Ventilator Setting YES, Blood Gas Inspired Oxygen 100 09/10/22 18:30: Lactic Acid Level 3.30*H 09/10/22 20:38: Lactic Acid Level 1.88 09/11/22 04:35: White Blood Count 8.5, Red Blood Count 3.23L, Hemoglobin 10.9L, Hematocrit 34L, Mean Corpuscular Volume 106H, Mean Corpuscular Hemoglobin 34, Mean Corpuscular Hemoglobin Concent 32, Red Cell Distribution Width 19.9H, Platelet Count 163, Mean Platelet Volume 9.7, Immature Granulocyte % (Auto) 1, Neutrophils (%) (Auto) 62, Lymphocytes (%) (Auto) 32, Monocytes (%) (Auto) 4, Eosinophils (%) (Auto) 0, Basophils (%) (Auto) 1, Neutrophils # (Auto) 5.3, Lymphocytes # (Auto) 2.7, Monocytes # (Auto) 0.4, Eosinophils # (Auto) 0.0, Basophils # (Auto) 0.1, Immature Granulocyte # (Auto) 0.1, Sodium Level 141, Potassium Level 4.9, Chloride Level 109H, Carbon Dioxide Level 18L, Anion Gap 14, Blood Urea Nitrogen 23H, Creatinine 1.70H, Estimat Glomerular Filtration Rate 45, BUN/Creatinine Ratio 14, Glucose Level 98, Calcium Level 8.3L, Magnesium Level 1.5L, Total Bilirubin 0.9, Direct Bilirubin 0.7H, Indirect Bilirubin 0.2, Aspartate Amino Transf (AST/SGOT) 266H, Alanine Aminotransferase (ALT/SGPT) 66H, Alkaline Phosphatase 61, Troponin I 0.416*H, Total Protein 5.3L, Albumin 2.7L, Triglycerides Level 115, Cholesterol Level 90, LDL Cholesterol Direct 38, VLDL Cholesterol 23, HDL Cholesterol 32L 09/11/22 05:05: Blood Gas Puncture Site L RAD, Blood Gas Patient Temperature 37.6, Arterial Blood pH 7.31*L, Arterial Blood Partial Pressure CO2 45, Arterial Blood Partial Pressure O2 69L, Arterial Blood HCO3 22L, Arterial Blood Total CO2 23.4, Arterial Blood Oxygen Saturation 91L, Arterial Blood Base Excess -3.1L, Alvarez Test YES-POS, Blood Gas Ventilator Setting YES, Blood Gas Inspired Oxygen 30% 09/11/22 12:40: SARS-CoV-2 RNA (RT-PCR) Not Detected Radiology Signed Date of Exam:09/11/22 CHEST 1 VIEW, AP/PA ONLY INDICATION: Pneumothorax, intubated. TECHNIQUE: Single view chest 7:58 AM. CORRELATION STUDY: 09/10/2022 FINDINGS: Endotracheal tube and gastric tube remain in place. A right-sided chest tube remains present, however, appears to have been retracted slightly since prior. Side-port just deep to the chest wall. Subcutaneous gas over the right chest. No appreciable pneumothorax. Extensive biapical opacities. Additional bilateral pulmonary opacities particularly in the perihilar region are noted. However, overall less pronounced and improved from prior. Heart size and mediastinum are generally stable. IMPRESSION: 1. Slight interval retraction of right-sided chest tube. No appreciable pneumothorax. 2. Scattered bilateral pulmonary opacities do persist but overall are improved. Extensive biapical pulmonary opacities stable. Dictated by: Dictated on workstation # [id number] Dict: 09/11/22 0815 Trans: 09/11/22 0920 CARI [id number] Interpreted by: KARINA ARRIAAG DO Electronically signed by: KARINA ARRIAGA DO 09/11/22 0920 Assessment/Plan Assessment/Plan Assessment/Plan Venous Insufficiency Hypotension with need for pressors S/P Cardiac arrest Acute on chronic respiratory failure ETOH abuse Emphysema Patient in need of central line placement for venous access, will place today. Clinical Quality Measures AMI/AHF: ASA po Prior to arrival: NOBLE Suazo DO Sep 11, 2022 13:45
--- NOTE | 2022-09-11 13:47 | Progress Note-Post Operative ---
Post-Operative Progess Note Surgeon (s)/Farm Operator (s) Surgeon NOBLE ALY DO Farm Operator: none Pre-Operative Diagnosis Venous Insufficiency, Hypotension Post-Operative Diagnosis same Procedure & Operative Findings Date of Procedure 09/11/22 Procedure Performed/Findings Central Line Placement The patient was in their bed in the ICU, was prepped and draped in a sterile fashion. A surgical pause was performed. Ultrasound was used to locate the internal jugular vein. Once located using an 18 gauge finder needle and watching with the US; the right internal jugular vein was accessed. Dark non- pulsatile blood was withdrawn. The wire was inserted. The US assured proper placement. The needle was removed. A [#11] blade scalpel was used to make a stab incision along the guidewire. Dilator sheath was then advanced over the wire using Seldinger technique and the dilator was removed. The Groshong catheter was inserted over the guide wire using the Seldinger technique. The Groshong wire was removed. The catheter was then accessed in all three ports without difficulty. Good flash of blood was seen and it was then flushed with saline. The catheter was sutured in place with 3-0 silk suture. The area was then washed and dried. Sterile dressing was placed over incision. The patient tolerated the procedure well without complication. Anesthesia Type pt sedated on vent Estimated Blood Loss Estimated blood loss (mL): scant Specimens/Packing Specimens Removed none NOBLE ALY DO Sep 11, 2022 13:47
[2022-09-11] MEDS ORDERED: ATROPINE INJECTION 1 MG/10 ML SYR (ABBOTT) ONE (13:58)
[2022-09-11] MEDS: NS IV 1000 ML 500 ML IV SCH ×3 (14:16→16:59)
[2022-09-11] MEDS: NOREPINEPHRINE 8 MG/250 ML 250 ML IV SCH ×2 (14:32→18:32)
[2022-09-11 14:47] LABS: ABG BASE EXCESS -7.2 MMOL/L (-2.5-2.5); ABG OXYGEN SATURATION 100 % (94-100); ABG PCO2 44 MMHG (35-45); ABG PO2 369 MMHG (79-93); ABG TCO2 20.2 MMOL/L (21.0-31.0)
[2022-09-11 14:50] LABS: ABG PH 7.25 (7.37-7.43); ALLENS TEST YES-POS; INSPIRED O2 30%; PATIENT TEMP 36.5; VENTILATOR YES
--- NOTE | 2022-09-11 14:56 | Diagnostic Imaging Report ---
EXAMINATION: Chest radiograph, portable AP view. DATE: 09/11/2022 2:28 PM INDICATION: 62-year-old male, central line placement. COMPARISON: September 11, 2022 at 0758 hours. FINDINGS: The endotracheal tube is approximately 7.9 cm above the quita. The nasogastric tube extends below the included [id number]. The right internal jugular central venous line is new and overlies the mid to upper SVC. There is a right-sided chest tube. Heart size and mediastinal contours are unchanged. There is multifocal bilateral lung consolidation which is unchanged. There is no identified pneumothorax. IMPRESSION: 1. A right-sided internal jugular central venous line overlying the mid to upper SVC. 2. Unchanged multifocal bilateral lung consolidation. Dictated by: Dictated on workstation # [id number]
[2022-09-11] MEDS ORDERED: SODIUM BICARB 8.4% 50 MEQ/50 ML (ABBOTT) SYR IV ONE (15:15)
[2022-09-11 15:36] VITALS: BP 127/75
--- NOTE | 2022-09-11 16:16 | Progress Note - Hospitalist ---
Subjective HPI/CC On Admission Date Seen by Provider: Sep 11, 2022 Time Seen by Provider: 12:20 Josafat Back is a 62 year old male who presented after a cardiac arrest at home. His fiancee apparently found him unresponsive having seizure-like activity. He did not have a pulse and CPR was initiated. She continued CPR until EMS arrived. ROSC was obtained. He was intubated. There is no family present upon my examination. He is intubated and mildly sedated. He is opening his eyes spontaneously. He is not able to follow commands. He had reportedly been having upper respiratory symptoms. They were concerned that he had a sinus infection or pneumonia. He had been taking an antibiotic they had at home. Subjective/Events-last exam He remains intubated and sedated. I updated his family. Focused Exam Lactate Level 09/10/22 18:30: Lactic Acid Level 3.30*H 09/10/22 20:38: Lactic Acid Level 1.88 09/11/22 14:35: Lactic Acid Level 1.34 Lactic Acid Level Laboratory Tests Test 09/11/22 14:35 Lactic Acid Level 1.34 MMOL/L (0.50-2.00) Objective Exam Vital Signs Vital Signs Date Time Temp Pulse Resp B/P (MAP) Pulse Ox O2 Delivery O2 Flow Rate FiO2 09/11/22 15:36 109 25 100 40 09/11/22 14:32 101/76 09/11/22 13:26 36.5 09/11/22 13:00 Mechanical Ventilator 30.00 Capillary Refill : Less Than 3 Seconds General Appearance: No Apparent Distress, WD/WN Respiratory: Lungs Clear, No Respiratory Distress, Other (intubated and mechanically ventilated) Cardiovascular: No Murmur, Tachycardia Gastrointestinal: Normal Bowel Sounds, Soft Extremity: Normal Inspection, No Pedal Edema Neurologic/Psychiatric: Other (sedated) Skin: Normal Color, Warm/Dry Results/Procedures Lab Laboratory Tests 09/11/22 04:35 Patient resulted labs reviewed. Imaging: Reviewed Imaging Films, Reviewed Imaging Report Assessment/Plan Assessment and Plan Assess & Plan/Chief Complaint Cardiac arrest Cardiogenic shock NSTEMI CAD Acute respiratory failure with hypoxia and hypercapnia Severe sepsis Pneumonia Pneumothorax Lactic acidosis ALLI Elevated LFTs Mixed respiratory and metabolic acidosis Acute heart failure with reduced ejection fraction Ischemic cardiomyopathy Endotracheally intubated Atrial fibrillation with rapid ventricular response COPD Alcohol dependence History of alcohol withdrawal TeleICU following Cardiology following Surgery following CXR with pneumothorax Chest tube in place Echo with EF 20-25% 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, two stents placed ASA and Brilinta CT chest with emphysema, infiltrates CT head without acute abnormalities Vanc and Zosyn Cardizem Metoprolol Lovenox Started on pressors Consider Ativan or Versed Critical Care Critically Ill Patient Diagnosis/Problems Diagnosis/Problems (1) Cardiac arrest Status: Acute (2) Acute respiratory failure with hypoxia and hypercapnia Status: Acute (3) PNA (pneumonia) (4) Lactic acidosis Status: Acute (5) Acute HFrEF (heart failure with reduced ejection fraction) Status: Acute (6) Endotracheally intubated Status: Acute (7) Atrial fibrillation with rapid ventricular response Status: Acute (8) Pneumothorax Status: Acute Qualifiers: Pneumothorax type: traumatic Encounter type: initial encounter Qualified Codes: S27.0XXA - Traumatic pneumothorax, initial encounter (9) COPD (chronic obstructive pulmonary disease) Status: Chronic (10) High anion gap metabolic acidosis Status: Acute (11) Respiratory acidosis Status: Acute (12) Severe sepsis Status: Acute (13) Cardiogenic shock (14) Ischemic cardiomyopathy (15) NSTEMI (non-ST elevation myocardial infarction) (16) CAD (coronary artery disease) (17) ALLI (acute kidney injury) (18) Elevated LFTs Clinical Quality Measures AMI/AHF: ASA po Prior to arrival: PRACHI Lepe MD Sep 11, 2022 16:16
[2022-09-11 18:34] VITALS: BP 92/63
[2022-09-11] MEDS: TICAGRELOR 90 MG TABLET (BRILINTA) PO SCH (20:55)
[2022-09-11 21:51] VITALS: BP 121/83
[2022-09-12] MEDS: inSUlin ASPART (NovoLOG) 1 UNIT/0.01 ML (CHARGE PER UNIT) SC SCH ×3 (00:28→11:06)
[2022-09-12] MEDS: NS IV 1000 ML 1,000 ML IV SCH ×3 (01:20→10:16)
[2022-09-12] MEDS: NOREPINEPHRINE 8 MG/250 ML 250 ML IV SCH ×2 (01:20→08:17)
[2022-09-12] MEDS: RT-ALBUTEROL/IPRATROPIUM 3 ML (DUONEB) VIAL INH SCH ×3 (02:12→10:14)
[2022-09-12] MEDS: aCETylcysteine 20% (MUCOMYST) 4 ML SOLN VIAL INH SCH ×2 (02:12→10:14)
[2022-09-12 02:13] VITALS: BP 124/73
[2022-09-12] MEDS: fentaNYL DRIP PRE-MIX 250 ML IV SCH ×2 (03:41→11:41)
[2022-09-12] MEDS: PIPERACILLIN SODIUM/TAZOBACTAM 4.5 GM in NS (IVPB) 100 ML IV SCH (04:42)
[2022-09-12 04:54] LABS: ABG BASE EXCESS -9.1 MMOL/L (-2.5-2.5); ABG OXYGEN SATURATION 87 % (94-100); ABG PCO2 47 MMHG (35-45); ABG PO2 62 MMHG (79-93); ABG TCO2 19.1 MMOL/L (21.0-31.0)
[2022-09-12 04:55] LABS: ALLENS TEST 1yes; INSPIRED O2 35%; PATIENT TEMP 37; VENTILATOR YES
[2022-09-12] MEDS: POTASSIUM CL 10MEQ/50ML IVPB 50 ML IV SCH (05:07)
[2022-09-12] MEDS: meTOprolol 5 MG/5 ML (LOPRESSOR) VIAL IV SCH ×2 (05:07→11:06)
[2022-09-12] MEDS: MAGNESIUM 1 GM/100 ML IVPB 100 ML IV SCH (05:07)
[2022-09-12] MEDS: KCL 20 MEQ TAB (K-DUR) PO SCH (05:07)
[2022-09-12 05:12] LABS: HEMATOCRIT 32 % (40-54); HEMOGLOBIN 10.1 g/dL (13.3-17.7); MEAN CORPUSCULAR HEMOGLOBIN 35 pg (25-34); MEAN CORPUSCULAR HGB CONC 32 g/dL (32-36); MEAN CORPUSCULAR VOLUME 109 fL (80-99); MEAN PLATELET VOLUME 9.3 fL (9.0-12.2); PLATELET COUNT 188 10^3/uL (130-400); WHITE BLOOD COUNT 12.1 10^3/uL (4.3-11.0)
[2022-09-12 05:24] LABS: CALCIUM 7.2 MG/DL (8.5-10.1)
[2022-09-12 05:28] LABS: CREATININE SERUM 2.74 MG/DL (0.60-1.30)
[2022-09-12 05:31] LABS: MAGNESIUM 2.3 MG/DL (1.6-2.4)
[2022-09-12] MEDS: PROPOFOL DRIP (ICU) 100 ML IV SCH ×2 (06:15→12:38)
[2022-09-12] MEDS: VANCOMYCIN 1500MG/300ML PREMIX IV SCH (06:16)
[2022-09-12 06:30] VITALS: BP 116/81
--- NOTE | 2022-09-12 07:25 | Diagnostic Imaging Report ---
INDICATION: Pneumothorax COMPARISON: 09/11/2022 TECHNIQUE: Single radiograph chest dated 09/12/2022 FINDINGS: Endotracheal tube, enteric catheter, right IJ central venous catheter, and right-sided chest tube are again identified and stable. The cardiac silhouette is stable. Pulmonary vasculature is predominantly obscured. Low lung volumes with worsened left greater than right mixed interstitial and airspace opacities. Opacities within the left greater than right lung apices are again seen and stable. No significant pneumothorax. Osseous structures appear stable. Gas within the lateral right chest wall is again seen. IMPRESSION: Decreased lung volumes with worsening left greater than right pulmonary opacities and consolidation. Unchanged lines and tubes. Unchanged right-sided chest tube without significant pneumothorax. Additional stable findings as above. Dictated by: Dictated on workstation # [id number]
[2022-09-12] MEDS: PANTOPRAZOLE 40 MG (PROTONIX) VIAL IV SCH (08:19)
[2022-09-12] MEDS: FOLIC ACID 5MG/ML 10 ML IV SCH (08:21)
[2022-09-12] MEDS: TICAGRELOR 90 MG TABLET (BRILINTA) PO SCH (08:22)
--- NOTE | 2022-09-12 08:38 | Cardiology Progress Note ---
Subjective Date Seen by Provider: Sep 12, 2022 Time Seen by Provider: 08:34 Subjective/Events-last exam Patient is sedated and intubated Review of Systems General: Other (Unable to provide review of systems) Focused Exam Lactate Level 09/10/22 18:30: Lactic Acid Level 3.30*H 09/10/22 20:38: Lactic Acid Level 1.88 09/11/22 14:35: Lactic Acid Level 1.34 Objective-Cardiology Exam Last Set of Vital Signs Vital Signs 09/12/22 09/12/22 09/12/22 07:00 08:11 08:23 Temp 38.1 Pulse 83 Resp 25 B/P (MAP) 113/70 Pulse Ox 93 O2 Delivery Mechanical Ventilator O2 Flow Rate 35.00 FiO2 35 I&O Intake and Output 09/12/22 00:00 Intake Total 4650 ml Output Total 820 ml Balance 3830 ml Intake Oral 0 ml IV Total 4575 ml Other 75 ml Output Urine Total 805 ml Chest Tube Drainage Total 15 ml General: Moderate Distress, Other (Sedated and intubated) HEENT: Atraumatic Neck: Supple, No JVD Lungs: Clear to Auscultation, Normal Air Movement Heart: Normal S1, Normal S2, Other (Atrial fibrillation) Abdomen: Normal Bowel Sounds, Soft Extremities: No Clubbing, No Cyanosis Skin: No Rashes, No Breakdown Neuro: Other (Sedated and intubated) Psych/Mental Status: Other (Sedated and intubated) Results Lab Laboratory Tests 09/12/22 05:00 A/P-Cardiology Admission Diagnosis Anoxic brain injury Acute respiratory failure Wide-complex tachycardia Hypotensive shock Assessment/Plan Anoxic brain injury, Currently ventilator dependent. Continue to monitor History of alcoholism, currently sedated Managed by medical team Witnessed collapse, questionable sudden On arrival to the emergency room had wide-complex tachycardia Was initially in atrial flutter, appears to be in atrial fibrillation, heart rate is slightly better on Cardizem drip Maintained on Lovenox Atrial flutter, controlled rate Continue on Lovenox to reduce the risk of stroke Congestive heart failure, dilated cardiomyopathy with ejection fraction 25 to 30%. Combined ischemic and nonischemic cardiomyopathy Starting beta-blockers and ARB and monitor tolerance and response Non-ST elevation myocardial infarction, coronary artery disease Cardiac catheterization done on September 11, 2022, total occlusion of the right coronary artery Complex intervention with deployment of 2 drug-eluting stents Osiro 2.75x35 and 2.5 x 22 to the right coronary artery, has borderline lesions in the mid LAD and the proximal ramus intermedius which will be postponed to a later point to limit the exposure of excessive contrast Acute renal failure, worsening renal function Combined renal failure secondary to cardiac arrest and contrast nephropathy Using IV fluid, will use IV Lasix as needed Acute respiratory failure, ventilator dependent Managed by medical team Right pneumothorax, secondary to CPR, chest tube is in place. Lactic acidosis, receiving IV fluids, managed by medical team Questionable pneumonia noted on x-ray, managed by medical team CT of the chest with contrast reported as possible atelectasis versus pneumonia, no embolus or aneurysm CT angiogram of the head and neck did not show any catastrophic stroke or bleed CHINYERE VARGAS MD Sep 12, 2022 08:38
[2022-09-12] MEDS ORDERED: ASPIRIN E.C. 81 MG (ECOTRIN) TAB PO SCH (09:00)
[2022-09-12] MEDS ORDERED: D5W IV SCH (09:15)
[2022-09-12] MEDS ORDERED: THIAMINE 100 MG (VITAMIN B-1) TAB PO SCH (09:15)
[2022-09-12] MEDS ORDERED: SODIUM BICARBONATE IV SCH (09:15)
--- NOTE | 2022-09-12 09:20 | Tele-ICU Progress Note ---
Subjective Date Seen by a Provider: Sep 12, 2022 Time Seen by a Provider: 09:20 Subjective/Events-last exam (Tele-ICU Physician , Progress Note ) Service provided via interactive audio and video telecommunications E-CARE system to a patient admitted to ICU bed in [facility]. Patient is seen today due to persistent need of ICU care Available chart/ vitals / labs / Images reviewed Video assessment done using teleICU camera, rest of exam as per RN Discussed with RN Events overnight : febrile hemodynamically stable Respiratory - I/O = Drips: NA 100 Pressors- levo 0.25 , cardizem 7.5 VENT SETTINGS and ABG reviewed NOT CANDIDATE for SBTreviewed possible contraindications including Cardiovascular Stability /Sedation Score / FI02/PEEP / ABG / CXR/ secretions Sedation, discussed with RN, RASS -2 on propofol 30 fent 150 Hospital course: (09/10) 62 y/o M - Cardiac Arrest with ROSC, Pneumonia, Pneumothorax s/p Right chest tube, COPD, CHF and Afib w/rvr Intubated 09/11 - cat lab 09/12 - AC 450 rr 24 35% + 5 , ALLI , added bicarb gtt A/P Cardiac arrest , 09/10 , -witnessed at home CPR done obtained ROSC. wide-complex tachycardia in ER Acute resp failure post arrest -AC 450 rr 24 35% + 5 ( RR increased to 26 = full vent support for today ALLI - new 09/12/22 - post contrast ( s/p contrast 09/11 cath -lab and 09/10 - CTA head and CTA chest ) plus in shock - not anuric , cont IVF - add bicarb gtt - migh need lasix PNA, left - zosyn and vanco Shock - with acidosis , ALLI and possible sepsis in addition to cardiogenic ( EF 25 % 0 - pressors suppoer , correct acidosis Atrial flutter, -controlled rate on card izem gtt as per cards - on Lovenox full dose Cardiomyopathy EF 25 to 30%. Combined ischemic and nonischemic ( ? ETOH ) - as per cards Anemia -minimal whoozing at line sites , no active bleeding mental status change - CTA 09/10 - no acute finding - on propofol fentanyl - -will try sedation vacation to assess respond RIGHT PTX , post CPR - chest ube in place , still has intermittent leak , on sucytion -20 - CPM H/o heavy ETOH - add vit, anticipate withdrawal Extensive bullous emphysema, smoker , COPD - add nebs given secretions Start TF today Lines R IJ 09/11 , (Central Line Necessity Reviewed) Soliz: + OG: Nutrition: tf Analgesia: Anxiety/ delirium VTE Prophylaxis: elizabeth 80 Stress Ulcer Prophylaxis: ppi Plans in collaboration with bedside consultants and IM MDs. Discussed with RN to reach out if any questions or concerns Case and care daily discussed on multidisciplinary rounds ( RN, PharmD, Sleep Tech , Respiratory Therapy, boiler plant worker ) A total of 40 minutes of critical care time was devoted to this patient today, required to treat and/or prevent further deterioration of critical care condition ( as above ) . I am remotely monitoring this patient from another state. I am unable to do the bedside exam, and history/physical and pertinent information is taken from other notes in the computer and bedside staff. Sepsis Event Evaluation Height, Weight, BMI Height: '" Weight: lbs. oz. kg; 23.34 BMI Method: Focused Exam Lactate Level 09/10/22 18:30: Lactic Acid Level 3.30*H 09/10/22 20:38: Lactic Acid Level 1.88 09/11/22 14:35: Lactic Acid Level 1.34 Exam Exam Patient acknowledged, consented, and participated in this virtual visit which was conducted using real time audio/video Vital Signs Date Time Temp Pulse Resp B/P (MAP) Pulse Ox O2 Delivery O2 Flow Rate FiO2 09/12/22 08:23 83 113/70 09/12/22 08:17 83 113/70 09/12/22 08:11 38.1 09/12/22 08:00 84 25 118/71 (87) 92 Mechanical Ventilator 35.00 09/12/22 07:00 83 25 113/70 (84) 93 Mechanical Ventilator 35.00 09/12/22 07:00 35 09/12/22 06:59 87 09/12/22 06:30 94 26 92 35 09/12/22 06:15 86 110/75 09/12/22 06:00 86 24 110/75 (87) 94 Mechanical Ventilator 35.00 09/12/22 05:00 90 24 119/74 (89) 93 Mechanical Ventilator 35.00 09/12/22 04:00 90 23 119/71 (87) 94 Mechanical Ventilator 35.00 09/12/22 04:00 98 Mechanical Ventilator 35 09/12/22 03:41 101 124/73 09/12/22 03:30 35 09/12/22 03:30 35 09/12/22 03:00 95 16 121/76 (91) 93 Mechanical Ventilator 35.00 09/12/22 02:46 101 124/73 09/12/22 02:13 101 24 99 35 09/12/22 02:00 86 24 124/73 (90) 96 Mechanical Ventilator 35.00 09/12/22 01:20 87 114/83 09/12/22 01:00 80 09/12/22 01:00 77 23 119/72 (88) 94 Mechanical Ventilator 35.00 09/12/22 00:00 87 23 114/83 (93) 95 Mechanical Ventilator 35.00 09/11/22 23:59 98 Mechanical Ventilator 35 09/11/22 23:30 35 09/11/22 23:00 86 26 122/81 (95) 98 Mechanical Ventilator 35.00 09/11/22 22:46 90 121/83 09/11/22 22:32 90 121/83 09/11/22 22:00 87 24 103/81 (88) 96 Mechanical Ventilator 35.00 09/11/22 21:51 90 24 100 35 09/11/22 21:00 87 23 121/81 (94) 99 Mechanical Ventilator 35.00 09/11/22 20:56 94 126/83 09/11/22 20:54 100 Mechanical Ventilator 35.00 09/11/22 20:13 94 126/83 09/11/22 20:00 89 23 122/86 (98) 100 Mechanical Ventilator 40.00 09/11/22 20:00 100 Mechanical Ventilator 40 09/11/22 19:45 37.1 94 23 126/83 (97) 100 Mechanical Ventilator 40.00 09/11/22 19:30 40 09/11/22 19:00 89 24 122/88 (99) 100 Mechanical Ventilator 40.00 09/11/22 19:00 90 09/11/22 18:34 85 24 100 40 09/11/22 18:32 92 92/63 09/11/22 18:32 92 84/67 09/11/22 18:00 92 23 84/67 (75) 96 Mechanical Ventilator 30.00 09/11/22 17:00 103 23 142/84 (97) 100 Mechanical Ventilator 30.00 09/11/22 16:33 94 Mechanical Ventilator 40 09/11/22 16:13 109 134/88 09/11/22 16:00 107 56 134/88 (113) 95 Mechanical Ventilator 30.00 09/11/22 15:45 109 134/88 09/11/22 15:36 109 25 100 40 09/11/22 15:30 40 09/11/22 15:00 96 31 154/87 (105) 100 Mechanical Ventilator 30.00 09/11/22 14:32 86 101/76 09/11/22 14:00 70 23 98 Mechanical Ventilator 30.00 09/11/22 13:26 36.5 09/11/22 13:00 86 15 101/76 (83) 100 Mechanical Ventilator 30.00 09/11/22 12:45 86 101/76 09/11/22 12:45 89 7 108/78 (85) 96 Mechanical Ventilator 30.00 09/11/22 12:35 94 Mechanical Ventilator 30 09/11/22 12:32 87 09/11/22 12:31 94 25 92 50 09/11/22 12:30 87 121/92 (102) 92 Mechanical Ventilator 30.00 09/11/22 12:27 96 6 134/88 (111) 100 Mechanical Ventilator 30.00 09/11/22 11:32 73 115/75 I & O 09/12/22 07:00 Intake Total 5355 ml Output Total 960 ml Balance 4395 ml Height & Weight Height: '" Weight: lbs. oz. kg; 23.34 BMI Method: General Appearance: Thin, Other (Unkempt, dirty disheveled) HEENT: Other (dry mucous membranes; LMA in place; poor dentition) Neck: Normal Inspection Respiratory: Rhonci (throughout; ventilations assisted with BVM copious secretions noted equal rise and fall the chest) Cardiovascular: Irregularly Irregular, Tachycardia Capillary Refill: Less Than 3 Seconds Gastrointestinal: non tender, soft, no organomegaly Extremity: Normal Inspection, No Pedal Edema, Other (not obvious outward signs of trauma) Neurologic/Psychiatric: Other (Unresponsive to deep painful stimuli) Skin: Normal Color, Warm/Dry Results Lab Laboratory Tests 09/10/22 15:15 09/11/22 04:35 09/12/22 05:00 Assessment/Plan Assessment/Plan 1 VINCE MANN MD Sep 12, 2022 09:20
[2022-09-12] MEDS: ENOXAPARIN 80 MG/0.8 ML (LOVENOX) SYR SC SCH (09:37)
[2022-09-12 10:14] VITALS: BP 135/67
[2022-09-12] MEDS: dilTIAZem DRIP PRE-MIX 125 ML IV SCH (11:11)
[2022-09-12] MEDS ORDERED: ACET-3075 PO (12:01)
[2022-09-12] MEDS ORDERED: DIGOXIN 0.25 MG/ML (LANOXIN) 2 ML AMP IV NR (12:15)
[2022-09-12 12:34] LABS: POTASSIUM 4.3 MMOL/L (3.6-5.0)
[2022-09-12 12:35] LABS: CALCIUM 7.1 MG/DL (8.5-10.1)
[2022-09-12 12:39] LABS: CREATININE SERUM 3.1 MG/DL (0.60-1.30)
[2022-09-12 13:36] VITALS: BP 117/64
[2022-09-12] MEDS ORDERED: TROUGH ORDER-PHARMACY XX NR (17:00)
[2022-09-12] MEDS ORDERED: PIPERACILLIN SODIUM/TAZOBACTAM 4.5 GM in NS (IVPB) 100 ML IV SCH (18:00)
--- NOTE | 2022-09-12 21:27 | Discharge Summary ---
Diagnosis/Chief Complaint Date of Admission Sep 10, 2022 at 17:55 Date of Discharge Sep 12, 2022 at 15:20 Admission Diagnosis Cardiac arrest Primary Care No,Local Physician Discharge Diagnosis (1) Cardiac arrest Status: Acute (2) Acute respiratory failure with hypoxia and hypercapnia Status: Acute (3) PNA (pneumonia) (4) Lactic acidosis Status: Acute (5) Acute HFrEF (heart failure with reduced ejection fraction) Status: Acute (6) Endotracheally intubated Status: Acute (7) Atrial fibrillation with rapid ventricular response Status: Acute (8) Pneumothorax Status: Acute (9) COPD (chronic obstructive pulmonary disease) Status: Chronic (10) High anion gap metabolic acidosis Status: Acute (11) Respiratory acidosis Status: Acute (12) Severe sepsis Status: Acute (13) Cardiogenic shock (14) Ischemic cardiomyopathy (15) NSTEMI (non-ST elevation myocardial infarction) (16) CAD (coronary artery disease) (17) ALLI (acute kidney injury) (18) Elevated LFTs Discharge Summary Discharge Physical Exam Allergies: Coded Allergies: No Known Drug Allergies (Unverified , 09/10/22) Vitals & I&Os Vital Signs Date Time Temp Pulse Resp B/P (MAP) Pulse Ox O2 Delivery O2 Flow Rate FiO2 09/12/22 15:20 09/12/22 15:00 96 24 96 Mechanical Ventilator 35.00 09/12/22 11:16 35 09/12/22 10:55 37.1 Hospital Course Labs (last 24 hrs) Laboratory Tests 09/12/22 00:19: Glucometer 122H 09/12/22 04:45: Blood Gas Puncture Site r rad, Blood Gas Patient Temperature 37, Arterial Blood pH 7.20*L, Arterial Blood Partial Pressure CO2 47H, Arterial Blood Partial Pressure O2 62L, Arterial Blood HCO3 18L, Arterial Blood Total CO2 19.1L, Arterial Blood Oxygen Saturation 87L, Arterial Blood Base Excess -9.1L, Alvarez Test 1yes, Blood Gas Ventilator Setting YES, Blood Gas Inspired Oxygen 35% 09/12/22 05:00: White Blood Count 12.1H, Red Blood Count 2.93L, Hemoglobin 10.1L, Hematocrit 32L , Mean Corpuscular Volume 109H, Mean Corpuscular Hemoglobin 35H, Mean Corpuscular Hemoglobin Concent 32, Red Cell Distribution Width 20.6H, Platelet Count 188, Mean Platelet Volume 9.3, Sodium Level 139, Potassium Level 5.0, Chloride Level 111H, Carbon Dioxide Level 13L, Anion Gap 15H, Blood Urea Nitrogen 29H, Creatinine 2.74#H, Estimat Glomerular Filtration Rate 26, BUN/Creatinine Ratio 11, Glucose Level 131H, Calcium Level 7.2L, Magnesium Level 2.3, Troponin I 0.377*H, Vancomycin Level Trough 56.6*H 09/12/22 11:05: Glucometer 127H 09/12/22 12:15: Sodium Level 138, Potassium Level 4.3, Chloride Level 110H, Carbon Dioxide Level 15L, Anion Gap 13, Blood Urea Nitrogen 32H, Creatinine 3.10H, Estimat Glomerular Filtration Rate 22, BUN/Creatinine Ratio 10, Glucose Level 144H, Calcium Level 7.1L Microbiology 09/11/22 Gram Stain - Final, Resulted 09/11/22 Sputum Culture - Preliminary, Resulted Haemophilus influenza Usual upper respiratory cathy 09/10/22 Blood Culture - Preliminary, Resulted No growth Patient resulted labs reviewed. Imaging: Reviewed Imaging Films, Reviewed Imaging Report Discharge Home Medications: Active Scripts Active Reported Tylenol Pm Ex-Strength Caplet (Acetaminophen/Diphenhydramine) 500 Mg-25 Mg Tablet 2 Each PO HS Instructions to patient/family Please see electronic discharge instructions given to patient. Clinical Quality Measures AMI/AHF: ASA po Prior to arrival: No Problem Qualifiers (1) Pneumothorax: Pneumothorax type: traumatic Encounter type: initial encounter Qualified Codes: S27.0XXA - Traumatic pneumothorax, initial encounter LESLIE LOYA MD Sep 12, 2022 21:27
[2022-09-13] MEDS ORDERED: DIGOXIN 0.25 MG/ML (LANOXIN) 2 ML AMP IV SCH (09:00)
== END 2022-09-12 15:20 | disposition short-term general hospital (02) | DRG 246 ==
LOC: ER 15:07 → ICU 17:55
PROVIDERS: ADMIT Internal Medicine; ATTEND Family Medicine
PROC: 5A12012 Performance of Cardiac Output, Single, Manual (ICD-10-PCS; principal; 2022-09-10)
PROC: 5A1945Z Respiratory Ventilation, 24-96 Consecutive Hours (ICD-10-PCS; 2022-09-10)
PROC: 0W9930Z Drainage of Right Pleural Cavity with Drainage Device, Percutaneous Approach (ICD-10-PCS; 2022-09-10)
PROC: 0BH17EZ Insertion of Endotracheal Airway into Trachea, Via Natural or Artificial Opening (ICD-10-PCS; 2022-09-10)
PROC: 02HV33Z Insertion of Infusion Device into Superior Vena Cava, Percutaneous Approach (ICD-10-PCS; 2022-09-10)
PROC: 027034Z Dilation of Coronary Artery, One Artery with Drug-eluting Intraluminal Device, Percutaneous Approach (ICD-10-PCS; 2022-09-11)
PROC: 4A023N7 Measurement of Cardiac Sampling and Pressure, Left Heart, Percutaneous Approach (ICD-10-PCS; 2022-09-11)
PROC: B2111ZZ Fluoroscopy of Multiple Coronary Arteries using Low Osmolar Contrast (ICD-10-PCS; 2022-09-11)
DX: I21.4 Non-ST elevation (NSTEMI) myocardial infarction (principal); A41.9 Sepsis, unspecified organism; J96.01 Acute respiratory failure with hypoxia; J18.9 Pneumonia, unspecified organism; I50.21 Acute systolic (congestive) heart failure; R57.0 Cardiogenic shock; J96.02 Acute respiratory failure with hypercapnia; R65.20 Severe sepsis without septic shock; E87.21 Acute metabolic acidosis; N17.9 Acute kidney failure, unspecified; S27.0XXA Traumatic pneumothorax, initial encounter; I48.92 Unspecified atrial flutter; I47.20 Ventricular tachycardia, unspecified; G93.1 Anoxic brain damage, not elsewhere classified; I48.91 Unspecified atrial fibrillation; I25.5 Ischemic cardiomyopathy; I25.10 Atherosclerotic heart disease of native coronary artery without angina pectoris; D64.9 Anemia, unspecified; J43.9 Emphysema, unspecified; F17.210 Nicotine dependence, cigarettes, uncomplicated; I87.2 Venous insufficiency (chronic) (peripheral); Z20.822 Contact with and (suspected) exposure to COVID-19; F10.10 Alcohol abuse, uncomplicated; I95.9 Hypotension, unspecified
CPT/HCPCS: 31500; 32551; 36415; 36680; 70496; 70498; 71045; 71260; 80048; 80053; 80061; 80076; 80202; 80306; 80329; 82805; 82947; 83605; 83735; 83874; 83880; 84478; 84484; 85007; 85025; 85027; 85347; 85610; 85730; 87040; 87070; 87077; 87081; 87185; 87205; 87636; 93005; 93041; 93306; 93458; 94003; 94640; 94799; 99291